=== PATIENT | female | born 1935 | race Caucasian/White ===

== ENCOUNTER 2017-05-09 22:28 | Inpatient (IN) | payer MEDICARE, OTHER ==
[2017-05-09] MEDS ORDERED: Furosemide 40 MG/4 ML VIAL ONE (22:58)
[2017-05-09 23:04] LABS: PTT 29.6 SEC (22.9-36.1)
[2017-05-09 23:08] LABS: INR-International Normal Ratio 1.2; Prothrombin Time 15.5 SEC (12.0-14.7)
[2017-05-09 23:22] LABS: #Basophils 0.1 thou/uL (0.0-0.2); #Eosinphils 0.1 thou/uL (0.0-0.7); #Lymphocytes 1.2 thou/uL (1.20-3.40); %Basophils 0.4 % (0.0-1.0); %Eosinophils 0.6 % (0.0-10.0); %Lymphocytes 8.8 % (21.0-51.0); %Monocytes 7.2 % (0.0-10.0); %Neutrophils 82.8 % (42.0-75.0); Hemoglobin 11.8 g/dL (12.0-16.0); Hypochromia SLIGHT = 6-15 cells (100X) (0-5/hpf); MDiff Complete? YES; Macrocytosis SLIGHT = 6-15 cells (100X) (0-5/hpf); Mean Corpuscular HGB CONC 31.1 g/dL (32.0-36.0); PLT Morphology Comment Appears Adequate; Platelet Count 222 thou/uL (130-400); Polychromasia SLIGHT = 2-3 cells (100X) (0-2/hpf); RBC Distribution Width 12.7 % (11.5-14.5); Red Blood Cell (RBC) Count 3.57 mill/uL (4.20-5.40); White Blood Cell (WBC) Count 13.3 thou/uL (4.8-10.8)
[2017-05-09 23:27] LABS: ALT (SGPT) 64 U/L (8-55); AST (SGOT) 38 U/L (5-34); Albumin 3.9 g/dL (3.4-4.8); Alkaline Phosphatase 68 U/L (40-150); Anion Gap 17 mmol/L (10-20); BUN (Urea Nitrogen) 28 mg/dL (9.8-20.1); Bilirubin, Total 0.6 mg/dL (0.2-1.2); CK (CPK) 129 U/L (29-168); Calc. Creatinine Clearance 0 mL/min (70-130); Carbon Dioxide 20 mmol/L (23-31); Chloride 110 mmol/L (98-107); Estimated GFR-MDRD 44; Globulin 3.2 g/dL (2.4-3.5); Glucose 172 mg/dL (83-110); Potassium 4.1 mmol/L (3.5-5.1); Protein, Total 7.1 g/dL (6.0-8.3); Sodium 143 mmol/L (136-145)
[2017-05-09 23:31] LABS: CKMB 2.9 ng/mL (0-6.6); Troponin I 0.132 ng/mL (< 0.028)
[2017-05-09 23:44] LABS: Actual Bicarbonate (HCO3a) 21.6 mEq/L (22-26); CO2 Tension 38.9 mmHg (35.0-45.0); O2 Tension (PaO2) 202.3 mmHg (80.0-100.0); pH, Arterial 7.38 (7.35-7.45)
[2017-05-09 23:45] LABS: Calcium, Ionized 1.2 mmol/L (1.12-1.30); Hematocrit-ABG 37.4 % (36.0-47.0)
[2017-05-09 23:46] LABS: Analyzer IN Cardio ER
[2017-05-09 23:48] LABS: ALV-art Gradient 103.075 (0-20); Puncture Site RBA
[2017-05-10 05:20] LABS: Troponin I 0.148 ng/mL (< 0.028)
[2017-05-10] MEDS ORDERED: Ondansetron ODT 4 MG TAB SL PRN (07:04)
[2017-05-10] MEDS ORDERED: Ondansetron HCl/PF 4 MG/2 ML Vial IVP PRN ×2 (07:04→08:40)
[2017-05-10] MEDS ORDERED: Acetaminophen 325 MG TAB PO PRN ×2 (07:04→08:40)
--- NOTE | 2017-05-10 07:24 | RAD ---
PORTABLE AP CHEST X-RAY: 05/09/2017 HISTORY: Dyspnea. Decreased oxygen saturation. Respiratory distress. COMPARISON: 04/02/2016. FINDINGS: Post-surgical changes related to median sternotomy are again noted. Cardiac silhouette is magnified by projection but does appear mildly enlarged. There is a right pleural effusion and associated atel ectasis with patchy density at the left lung base which could be related to either atelectasis or pne umonia. Pulmonary vasculature is within normal limits. There is osteopenia. Vascular calcificatio ns seen in the thoracic aorta. No other interval change. IMPRESSION: 1. Pleural and parenchymal changes right lung base probably related to small right pleural effusion a nd atelectasis. 2. Minimal patchy density at the left lung base which may be related to atelectasis versus pneumoniti s. Follow-up to resolution is recommended. POS: WAYNE
[2017-05-10] MEDS ORDERED: Mag-Al 1200 mg/1200 mg/30 ML UDCUP PO PRN (08:40)
[2017-05-10] MEDS ORDERED: Acetaminophen/Codeine 30-300mg Tablet PO PRN (08:42)
[2017-05-10] MEDS ORDERED: Lorazepam 0.5 MG TAB PO PRN (08:42)
[2017-05-10] MEDS ORDERED: Nitroglycerin 2% Ointment 1 INCH/1 GM Packet TOP SCH (09:00)
[2017-05-10] MEDS ORDERED: Carvedilol 3.125 MG TAB PO SCH (09:00)
--- NOTE | 2017-05-10 09:22 | HP ---
PRIMARY CARE PHYSICIAN: Dr. Collins. BUSINESS SERVICES MANAGER: Dr. Stephens. REASON FOR ADMISSION: "I can hardly breathe." HISTORY OF PRESENT ILLNESS: Ms. Aldrich is a very pleasant 82-year-old female that has a history of isc hemic cardiomyopathy. Her last ejection fraction known was approximately 10%; this was back in 2016. Ms. Aldrich presented to the emergency room with complaints of feeling short of breath. She says that she has been having difficulty breathing for the last couple of weeks, but it has gotten much worse over the last week. She says that the shortness of breath typically happens when she tries to get up and go to the bathroom, and it is typically worse in the afternoon. She also noted that it was asso ciated with some pain primarily in the right upper chest, which she says is about 07/02/2016 and it i s constant; it is nonradiating. She does note some nausea and she says she has been vomiting up some phlegm. She says this shortness of breath got progressively worse that she pretty much could not ta ke in anymore, and for this reason, she came to the emergency room under the assistance of her madelineban d. There was found that she appears to be volume overloaded and is being admitted for CHF exacerbati on. The patient does complain of two-pillow orthopnea. She does note some leg swelling off and on. The patient says that she has gotten more or less tired of being aggressively treated. She has disc ussed this with Dr. Stephens and says that now she pretty much only takes nitroglycerin and aspirin. S he also says that she has discussed with him that she does not want any aggressive measures. She wan ts to be DNR and basically would prefer just being treated symptomatically. The patient also complai ns of some neck pain and chronic pain in her left arm, which she says happens almost daily as well as some other aches and pains. REVIEW OF SYSTEMS: Constitutional: She denies any fevers or chills. She has had some night sweats, but no weight loss. HEENT: No headaches, no dizziness, no visual changes, no sore throat, rhinorrh ea, neck pain, no adenopathy. Pulmonary: She does have some cough, which has been productive. No h emoptysis. Cardiovascular: Is as the history of present illness. Gastrointestinal: She has had so me nausea and vomiting, but no change in bowels. Genitourinary: No urinary frequency, hematuria, or hesitancy. Neurologic: No focal weakness, numbness, no seizures. Psychiatric: No symptoms of anx iety or depression. Skin and Integument: No skin changes. No rash. PAST MEDICAL HISTORY: Significant for coronary artery disease as well as ischemic cardiomyopathy, la st ejection fraction was approximately 10%. Also, hypertension, hyperlipidemia, and gastroesophageal reflux disease. PAST SURGICAL HISTORY: She had an aborted bypass surgery. ALLERGIES: No known drug allergies. SOCIAL HISTORY: She is for 64 years. She is a nonsmoker, nondrinker. She does most of her own activities of daily living. Her daughter helps out by bringing food, which is closer to the home . FAMILY HISTORY: There is no known history of coronary artery disease. CURRENT MEDICATIONS: Nitroglycerin and aspirin as needed. PHYSICAL EXAMINATION: GENERAL: She is alert and oriented. She appears to be in no acute distress. VITAL SIGNS: Stable. HEENT: Pupils are equal, round, and reactive. Extraocular muscles are intact. Her sclerae are anic teric. Throat no erythema, no exudates. NECK: No adenopathy, no bruits. LUNGS: She has got some rales at the bases. No wheezing, no rhonchi. CARDIOVASCULAR: She has a normal S1 and S2. She does have an S3. There are no murmurs, clicks, or rubs. ABDOMEN: Soft, it is nontender, nondistended. Positive for bowel sounds. No rebound or guarding. EXTREMITIES: She has got 1+ edema. NEUROLOGICAL: The exam is nonfocal. LABORATORY RESULTS: White blood cell count 13.3, hemoglobin is 11.8, hematocrit is 38, platelet coun t is 212. INR is 1.2. Sodium 143, potassium 4.1, chloride is 110, CO2 is 20, BUN of 28, creatinine 1.18, glucose is 172. She had a chest x-ray, it is mildly enlarged. There is a right pleural effusi on as well as some atelectasis and some patchy atelectasis. On her EKG, it is sinus rhythm. She has an intraventricular conduction block and heart rate is in the low 100s, 103. ASSESSMENT AND PLAN: This is an 82-year-old female that presents to the hospital with what appears t o be in acute on chronic systolic heart failure. She was initially placed on BiPAP or CPAP due to se lizette hypoxemia. She has been given Lasix in the ER and has diuresed some and symptomatically has imp roved. We will go ahead and keep her in the IMCU for now and give her Lasix IV, a low dose LIU inhib itor if tolerated, and a very low dose beta-bernardo. We will consult Cardiology for further recommen dations. The patient has not had a recent echocardiogram. She is agreeable to having a repeat echoc ardiogram done at this time, and we will honor her wishes with regard to DNR status, and we will disc uss treatment modalities, as they come up to see how aggressive she would like to be.
[2017-05-10 11:55] VITALS: BMI 29.7
[2017-05-10] MEDS ORDERED: Furosemide 40 MG/4 ML VIAL SLOW IVP SCH (12:00)
--- NOTE | 2017-05-10 12:28 | CON ---
DATE OF CONSULTATION: 05/10/2017 CONSULTING PHYSICIAN: Dr. Canela. REASON FOR CONSULTATION: Acute respiratory failure related to congestive heart failure exacerbation. HISTORY OF PRESENT ILLNESS: The patient is an 82-year-old female who presented to the emergency room last night with shortness of breath, which has been increasing over the last couple of weeks. Appar ently, she had stopped taking all of her heart medications at home because she was basically giving u p on life. She has improved since being on BiPAP and receiving some diuretic therapy. She is still quite confused on how she should proceed with a chronic symptom management. PAST MEDICAL HISTORY: 1. Ischemic cardiomyopathy with ejection fraction of 10%. 2. Hyperlipidemia. 3. Hypertension. 4. Gastroesophageal reflux. PAST SURGICAL HISTORY: Apparently, she had an aborted coronary artery bypass grafting surgery due to power failure. ALLERGIES: None. SOCIAL HISTORY: She has been for 64 years, does not smoke, does not drink, does not use illi cit drugs. FAMILY MEDICAL HISTORY: Remarkable for coronary artery disease. MEDICATIONS PRIOR TO ADMISSION: She was taking nitroglycerin, aspirin, and acetaminophen, apparently stopped all other medications. REVIEW OF SYSTEMS: Aside from the shortness of breath and congestion, a 12 point review of systems o therwise negative. PHYSICAL EXAMINATION: VITAL SIGNS: Temperature 97.0, pulse 95, respirations 24, O2 saturation 98%, blood pressure 142/83. GENERAL: The patient appears to be in mild respiratory distress on the BiPAP. Neurologically, she i s alert, but somewhat confused. HEENT: Pupils react. Sclerae are anicteric. Oropharynx clear. NECK: Without adenopathy or JVD. LUNGS: She has coarse breath sounds bilaterally with crackles at the bases. CARDIOVASCULAR: S1, S2 tachycardic. No murmur. ABDOMEN: Soft, nontender, nondistended. EXTREMITIES: She has slightly swollen right leg compared to left. She has no skin findings other th an that. She moves all 4 extremities without limitation. LABORATORY DATA: Sodium 143, potassium 4.1, chloride 110, CO2 20, BUN 28, creatinine 1.2, glucose 17 2. BNP 4292, troponin 0.148. INR 1.2, pH 7.38, pCO2 38, pO2 202, on BiPAP. White blood cell count 13, hematocrit 38, platelet count 222. Chest x-ray shows significant bilateral pulmonary congestion and effusion. ASSESSMENT: 1. Acute on chronic systolic congestive heart failure. 2. Acute respiratory failure, requiring mechanical ventilation. 3. Medicine noncompliance. RECOMMENDATIONS: 1. Continue BiPAP as needed. 2. Continue aggressive diuresis. 3. Cardiology consultation. Seventy minutes time was spent performing this consultation. Of this 70 minutes, greater than 50% of the time was spent in counseling and coordination of care.
[2017-05-10] MEDS: Famotidine 20 MG TAB PO SCH ×2 (13:02→20:27)
[2017-05-10] MEDS: Docusate 100 MG CAP PO SCH ×2 (13:02→20:28)
[2017-05-10] MEDS: Nitroglycerin 2% Ointment 1 INCH/1 GM Packet TOP SCH ×2 (13:02→20:28)
[2017-05-10] MEDS: Aspirin 81 mg Enteric Coated Tablet PO SCH (13:02)
[2017-05-10] MEDS: Lisinopril 2.5 MG TAB PO SCH (13:02)
[2017-05-10] MEDS: Furosemide 40 MG/4 ML VIAL SLOW IVP SCH (13:03)
[2017-05-10] MEDS ORDERED: FLU VACC TS2017-18 (>65YR) 0.5 ML SYRINGE IM ONE (13:15)
--- NOTE | 2017-05-10 15:44 | CON ---
DATE OF CONSULTATION: 05/10/2017 CARDIOLOGY CONSULTATION REASON FOR CONSULTATION: Heart failure. PRIMARY RN [facility]: Brody Stephens M.D. HISTORY OF PRESENT ILLNESS: Ms. Aldrich is a very pleasant 82-year-old white female who is very well kn own to myself who comes to the hospital for shortness of breath. She states for the last few days, s he has been noticing increasingly worsening shortness of breath to the point where today she felt lik e she was going to drown. She came in and was placed on BiPAP and started to get IV Lasix for diures is and she is already feeling much better. She is able to sat in the upper 90s only on nasal cannula . She has significant history of ischemic cardiomyopathy. She has an EF of about 10%-15% on last ev aluation. I have seen her several times in the office and she is not too compliant with her medicati ons. She is quite depressed. She has no desire to get better. She refuses any invasive interventio n like AICD or even just stenting of couple arteries. She had a failed attempt at bypass. She curre ntly is not taking many of her medications. She has been encouraged several times in the office to a t least take the Lasix to try to keep the volume down. She has been doing that, but she has been doi ng this for last few weeks. She has 2 level blood pressure to increase any of her heart failure medi cations as well. Recently, she was started on antidepressants as I was concerned about her depressio n and she tells me that it did not feel any different. She felt the same, so she just stopped taking it after about 3 or 4 days. Currently, she is at about 15 degrees right now with increased diuresis . She still wants o be DNR/DNI at the time. PAST MEDICAL HISTORY: 1. Severe multivessel coronary disease. 2. Ischemic cardiomyopathy, EF of 10%-15%. 3. Hypertension. 4. Hyperlipidemia. 5. GERD. PAST SURGICAL HISTORY: Aborted attempted biopsy surgery. She does have sternotomy, but did not get any bypasses at all. ALLERGIES: No known drug allergies. OUTPATIENT MEDICATIONS: Currently, she is only taking aspirin and sublingual nitro when she has ches t pains. FAMILY HISTORY: Noncontributory. SOCIAL HISTORY: Nonsmoker. No alcohol or drugs. MEDICATIONS: 1. Aspirin 81 daily. 2. Fluoxetine 10 mg a day. 3. Gabapentin 100 mg b.i.d. 3 times a day. 4. Isosorbide mononitrate 60 mg at bedtime. 5. Lasix 80 mg daily. 6. Magnesium 200 mg 2 every day. 7. Metoprolol succinate 25 mg a day. 8. Nitroglycerin spray p.r.n. 9. Pantoprazole 40 mg a day. 10. Tylenol p.r.n. pain. She is not taking any of these medications, only nitroglycerin spray and aspirin as needed. REVIEW OF SYSTEMS: A 12-point review of systems was done and is all negative unless stated in the hi story of present illness. PHYSICAL EXAMINATION: VITAL SIGNS: Temperature 97.2, pulse 98, respiratory rate 20, satting 100% on 2 liters, blood pressu re 145/99. GENERAL: Awake, alert, oriented x3, in mild distress. HEENT: Normocephalic, atraumatic. NECK: Supple. LUNGS: Clear. CARDIOVASCULAR: S1, S2, no S3 or S4. No murmurs or rubs. ABDOMEN: Soft, positive bowel sounds. EXTREMITIES: Trace edema. SKIN: Warm and dry. LABORATORY DATA AND IMAGING DATA: Laboratory work was reviewed. White count of 13, hemoglobin 11, h ematocrit 38, and platelet count of 222. Coags were reviewed. ABG was reviewed. Chemistry was revi ewed. BUN of 28, creatinine 1.18. AST and ALT are a little bit high, troponins 0.13, 0.13, and 0.14 . BNP is 4292, albumin 3.9. CK-MB was normal. Chest x-ray showed CHF findings. ASSESSMENT AND PLAN: 1. Acute on chronic systolic heart failure. 2. Severe dilated ischemic cardiomyopathy. 3. Medication noncompliance. 4. Hypertension. 5. Depression. PLAN: 1. Agree with IV diuresis. 2. Continue this until further improvement in her symptoms. 3. We will restart some of her home medications and we will encourage her to continue to take them o n a daily basis. 4. She is not interested in restarting any of her anti-depression medications as she states they jennifer lly make her feel different anyway. 5. Fluid restrict to 1.5 liters a day. 6. She continues to refuse any invasive interventions including AICD or attempted revascularization with PCI. Thank you for letting us to participate in the care of your patient. We will continue to follow.
[2017-05-10] MEDS: Enoxaparin Sodium 30 MG/0.3 ML SYRINGE SC SCH (16:11)
[2017-05-11] MEDS: Ondansetron ODT 4 MG TAB PO PRN ×2 (03:28→13:40)
[2017-05-11 04:14] LABS: #Basophils 0.1 thou/uL (0.0-0.2); #Eosinphils 0.1 thou/uL (0.0-0.7); #Lymphocytes 2.6 thou/uL (1.20-3.40); %Basophils 0.8 % (0.0-1.0); %Eosinophils 0.9 % (0.0-10.0); %Monocytes 8.9 % (0.0-10.0); %Neutrophils 65.5 % (42.0-75.0); Hemoglobin 11.7 g/dL (12.0-16.0); Mean Corpuscular HGB CONC 30.5 g/dL (32.0-36.0); Mean Corpuscular Hemoglobin 31.7 pg (27.0-31.0); Mean Platelet Volume 7.7 fL (7.4-10.4); Platelet Count 201 thou/uL (130-400); RBC Distribution Width 12.3 % (11.5-14.5); White Blood Cell (WBC) Count 10.7 thou/uL (4.8-10.8)
[2017-05-11 04:37] LABS: Anion Gap 15 mmol/L (10-20); BUN (Urea Nitrogen) 26 mg/dL (9.8-20.1); Calc. Creatinine Clearance 39 mL/min (70-130); Calcium 9.2 mg/dL (7.8-10.44); Carbon Dioxide 26 mmol/L (23-31); Chloride 103 mmol/L (98-107); Estimated GFR-MDRD 50; Glucose 103 mg/dL (83-110); Sodium 140 mmol/L (136-145)
[2017-05-11] MEDS: Furosemide 40 MG/4 ML VIAL SLOW IVP SCH ×2 (06:11→13:39)
[2017-05-11] MEDS: Nitroglycerin 2% Ointment 1 INCH/1 GM Packet TOP SCH ×3 (06:12→22:28)
[2017-05-11] MEDS: Lisinopril 2.5 MG TAB PO SCH (09:03)
[2017-05-11] MEDS: Aspirin 81 mg Enteric Coated Tablet PO SCH (09:03)
[2017-05-11] MEDS: Enoxaparin Sodium 30 MG/0.3 ML SYRINGE SC SCH (09:03)
[2017-05-11] MEDS: Famotidine 20 MG TAB PO SCH (09:03)
[2017-05-11] MEDS: Docusate 100 MG CAP PO SCH ×2 (09:03→22:19)
--- NOTE | 2017-05-11 09:33 | PDOC.PN ---
- Subjective Encounter Start Date: 05/11/17 Encounter Start Time: 09:31 Ms. Aldrich was seen today in follow-up. She says she feels a bit better today, and she is breathing better. - Objective Resuscitation Status: Resuscitation Status DNR:Do Not Resuscitate BOBY Reviewed: Yes Vital Signs & Weight: Vital Signs (12 hours) Temp Pulse Resp BP BP Pulse Ox 05/11/17 09:03 86 129/74 05/11/17 08:00 99.0 F 86 18 119/73 100 05/11/17 03:33 97.7 F 94 18 130/82 100 05/11/17 00:00 63 18 121/64 99 Weight Weight 129 lb 1.6 oz I&O: 05/10/17 05/11/17 05/12/17 06:59 06:59 06:59 Intake Total 830 Output Total 1400 Balance -570 Result Diagrams: 05/11/17 03:56 05/11/17 03:56 Phys Exam - Physical Examination HEENT: PERRLA Respiratory: no wheezing, no rales, no rhonchi + occasional coarse breath sounds Cardiovascular: RRR, no significant murmur, no rub Gastrointestinal: soft, non-tender, positive bowel sounds Musculoskeletal: edema present trace pedal edema Dx/Plan (1) Acute combined systolic and diastolic congestive heart failure Code(s): I50.41 - ACUTE COMBINED SYSTOLIC AND DIASTOLIC (CONGESTIVE) HRT FAIL Status: Acute Comment: Ischemic, medical mgmt after recent aborted CABG attempt 03/08/16 due to power failure and non-viable myocardium, Lasix d/c'd, continues to diurese well with >20lb weight loss since admit, continue Dobutamine but wean over next 24-48h (2) Physical deconditioning Code(s): R53.81 - OTHER MALAISE Status: Acute Comment: slow return to ambulatory status, likely will benefit from rehab and home health with PT at a minimum, OOB/ambulate with PT (3) CAD (coronary artery disease) Code(s): I25.10 - ATHSCL HEART DISEASE OF [place] CORONARY ARTERY W/O ANG PCTRS Status: Chronic (4) Dyslipidemia Code(s): E78.5 - HYPERLIPIDEMIA, UNSPECIFIED Status: Chronic (5) HTN (hypertension) Code(s): I10 - ESSENTIAL (PRIMARY) HYPERTENSION Status: Chronic Qualifiers: Comment: Stable, continue to monitor clinically - Plan * Acute on chronic systolic and diastolic heart failure- she is symptomatically improved * Continue Lasix IV, along with low dose Lisinopril and Metoprolol * Ambulate with assistance.
--- NOTE | 2017-05-11 11:20 | PRG ---
DATE OF SERVICE: 05/11/2017 SERVICE: Pulmonary Medicine. INTERVAL HISTORY: The patient is doing great from a respiratory standpoint. She has been weaned down to half liter nasal cannula. Otherwise, there has been no interval change to her condition. She is breathing comfortably. She is able walk with physical therapy today. OBJECTIVE: VITAL SIGNS: Afebrile with T-max of 99.0, pulse 86, blood pressure 129/74, respirations 18, saturation 96% on half liter nasal cannula. HEENT: Normocephalic, atraumatic. Sclerae are white, conjunctivae pink. Oral mucosa is moist without lesions. LUNGS: Excellent air entry. There is no prolonged expiratory phase, wheezing, or rhonchi. Crackles are present dependently. HEART: Normal rate, regular. ABDOMEN: Soft, nontender, nondistended. Bowel sounds are positive. MUSCULOSKELETAL: No cyanosis or clubbing. Trace pitting is present in the bilateral lower extremities. NEUROLOGIC: Grossly nonfocal. LABORATORY DATA: WBC 10.7, hemoglobin 11.7, platelets 201,000. INR 1.2. A pH 7.38, pCO2 38, pO2 202 on BiPAP with 50% FiO2 at that time. Basic metabolic profile is completely unremarkable with a creatinine is down trending to 1.05. BNP has gone up to 6400. Troponin is also trending upward slowly at 0.148. ASSESSMENT: 1. Acute hypoxic respiratory failure. 2. Acute on chronic systolic heart failure. 3. Medical noncompliance. PLAN: We will transition the patient out of the IMCU to the telemetry unit. We will enlist her in the walking program. I will wean her oxygen as tolerated. We will continue to diurese her until she arrives euvolemia, which is fast approaching. Guerrero catheter will be discontinued today. If the patient leaves the IMCU, she will have no further requirements for pulmonary or critical care opinion, and I will sign off. JULIÁND
--- NOTE | 2017-05-11 12:47 | PDOC.CTH ---
Cardiology Progress Note - Subjective She has diuresed well overnight. Her breathing is better. She is only on 1 L NC. She worked with PT today and feels close to her baseline. - Objective Vital Signs Temp Pulse Resp BP BP Pulse Ox 05/11/17 12:00 98.9 F 78 18 113/64 96 05/11/17 09:03 86 129/74 05/11/17 08:00 99.0 F 86 18 119/73 100 05/11/17 03:33 97.7 F 94 18 130/82 100 Weight 129 lb 1.6 oz 05/10/17 05/11/17 05/12/17 06:59 06:59 06:59 Intake Total 830 Output Total 1400 Balance -570 - Physical Examination General/Neuro: alert & oriented x3, NAD Neck: no JVD present Lungs: CTA, unlabored respirations Heart: RRR Abdomen: NT/ND Extremities: + edema B - Telemetry Telemetry Rhythm: NSR - Labs Result Diagrams: 05/11/17 03:56 05/11/17 03:56 Troponin/CKMB CK-MB (CK-2) 2.9 ng/mL (0-6.6) 05/09/17 22:45 Troponin I 0.148 ng/mL (< 0.028) H 05/10/17 04:44 - Assessment/Plan 1. Acute on chronic systolic heart failure 2. Severe ischemic CM. 3. Multivessel CAD. 4. Depression PLAN: - Continue IV diuresis. - Will continue in IMCU overnight and most likely to [address] tomorrow. - Continue other heart meds. BP much better controlled.
[2017-05-12] MEDS: Furosemide 40 MG/4 ML VIAL SLOW IVP SCH ×2 (06:02→14:01)
[2017-05-12] MEDS: Nitroglycerin 2% Ointment 1 INCH/1 GM Packet TOP SCH ×2 (06:02→14:00)
[2017-05-12] MEDS: Lisinopril 2.5 MG TAB PO SCH (08:07)
[2017-05-12] MEDS: Aspirin 81 mg Enteric Coated Tablet PO SCH (08:07)
[2017-05-12] MEDS: Enoxaparin Sodium 30 MG/0.3 ML SYRINGE SC SCH (08:07)
[2017-05-12] MEDS: Docusate 100 MG CAP PO SCH (08:07)
--- NOTE | 2017-05-12 11:17 | PDOC.PN ---
- Subjective Encounter Start Date: 05/12/17 Encounter Start Time: 11:15 Ms. Aldrich was seen in follow-up. She says she feels much better. She is breathing better, and says she walked in the halls without difficulty. - Objective Resuscitation Status: Resuscitation Status DNR:Do Not Resuscitate MAR Reviewed: Yes Vital Signs & Weight: Vital Signs (12 hours) Temp Pulse Resp BP Pulse Ox 05/12/17 08:07 76 05/12/17 08:00 98.0 F 76 18 99 05/12/17 07:50 98.0 F 76 18 140/78 99 05/12/17 04:00 97.5 F L 71 16 128/67 95 05/12/17 00:00 75 16 94 L Weight Weight 124 lb 1.6 oz I&O: 05/11/17 05/12/17 05/13/17 06:59 06:59 06:59 Intake Total 830 1280 Output Total 1400 2850 Balance -570 -1570 Result Diagrams: 05/11/17 03:56 05/11/17 03:56 Phys Exam - Physical Examination HEENT: PERRLA + faint rales at the bases Cardiovascular: RRR, no significant murmur Gastrointestinal: soft, non-tender, positive bowel sounds Musculoskeletal: edema present trace edema, less than yesterday Dx/Plan (1) Acute combined systolic and diastolic congestive heart failure Code(s): I50.41 - ACUTE COMBINED SYSTOLIC AND DIASTOLIC (CONGESTIVE) HRT FAIL Status: Acute Comment: Ischemic, medical mgmt after recent aborted CABG attempt 03/08/16 due to power failure and non-viable myocardium, Lasix d/c'd, continues to diurese well with >20lb weight loss since admit, continue Dobutamine but wean over next 24-48h (2) Physical deconditioning Code(s): R53.81 - OTHER MALAISE Status: Acute Comment: slow return to ambulatory status, likely will benefit from rehab and home health with PT at a minimum, OOB/ambulate with PT (3) CAD (coronary artery disease) Code(s): I25.10 - ATHSCL HEART DISEASE OF [place] CORONARY ARTERY W/O ANG PCTRS Status: Chronic (4) Dyslipidemia Code(s): E78.5 - HYPERLIPIDEMIA, UNSPECIFIED Status: Chronic (5) HTN (hypertension) Code(s): I10 - ESSENTIAL (PRIMARY) HYPERTENSION Status: Chronic Qualifiers: Comment: Stable, continue to monitor clinically - Plan * Acute on chronic systolic and diastolic heart failure- improved. Her weight is down. Will repeat BNP * CAD- stable, she is not complaining of chest pain today * HTN- blood pressure has improved * Hopefully home soon..
--- NOTE | 2017-05-12 12:04 | PQF ---
DATE: 05-12-17 ATTN: DR. MABEL LEWIS Please exercise your independent, professional judgment in responding to the clarification form. Clinical indicators are provided on the bottom of this form for your review Please check appropriate box(s): [ X ] Demand Ischemia [ ] Myocardial Infarction (type) [ ] Other diagnosis [ ] Unable to determine In addition, please specify: Present on Admission (POA): [ X ] Yes [ ] No [ ] Unable to determine For continuity of documentation, please document condition throughout progress notes and discharge summary. Thank You. CLINICAL INDICATORS - SIGNS / SYMPTOMS/ LABS are present in the medical record: Lab Results: TROPONIN: 05-09-17: 0.132 05-10-17: 0.130 05-10-17: 0.148 RISK FACTORS: H&P: HX OF ISCHEMIC CARDIOMYOPATHY, CAD, HYPERLIPIDEMIA, GERD ER DOCUMENTATION: HX OF OPEN HEART SURGERY ( SUPPOSE TO DO A CABG, NEVER DID THE BYPASS D/T TOO MUCH HEART DAMAGE) TREATMENT: SERIES OF ELECTROLYTE LABS CARDIOLOGY CONSULT CONTINUOUS CARDIAC MONITORING (05-10-16) NITROGLYCERIN TOP, ASA PO, LOVENOX (This form is maintained as a part of the permanent medical record) 2014 [employer]. All Rights Reserved ARIELLE [email or web address] Office: [phone] HOSPITALGopi
[2017-05-12 12:31] VITALS: BP 124/57; TEMP 98.3
--- NOTE | 2017-05-12 18:19 | PDOC.CTH ---
Cardiology Progress Note - Subjective She is doing much better. Her breathing is back to baseline. - Objective Vital Signs Temp Pulse Resp BP Pulse Ox 05/12/17 12:00 98.3 F 69 18 124/57 L 95 05/12/17 08:07 76 05/12/17 08:00 98.0 F 76 18 99 05/12/17 07:50 98.0 F 76 18 140/78 99 Weight 124 lb 1.6 oz 05/11/17 05/12/17 05/13/17 06:59 06:59 06:59 Intake Total 830 1280 Output Total 1400 2850 Balance -570 -1570 - Physical Examination General/Neuro: alert & oriented x3, NAD Neck: no JVD present Lungs: unlabored respirations Heart: RRR Abdomen: NT/ND Extremities: other: (no edema.) - Telemetry Telemetry Rhythm: NSR - Labs Result Diagrams: 05/11/17 03:56 05/11/17 03:56 Troponin/CKMB CK-MB (CK-2) 2.9 ng/mL (0-6.6) 05/09/17 22:45 Troponin I 0.148 ng/mL (< 0.028) H 05/10/17 04:44 - Assessment/Plan 1. Acute on chronic systolic heart failure 2. Severe ischemic CM. 3. Multivessel CAD. 4. Depression PLAN: - PO lasix. - Continue other heart meds. BP much better controlled. - Encouraged her to continue to take all her medications as prescribed on this discharge. - Follow up in 2 weeks as scheduled.
--- NOTE | 2017-05-28 13:08 | EKG ---
Test Reason : Blood Pressure : / mmHG Vent. Rate : 112 BPM Atrial Rate : 112 BPM P-R Int : 158 ms QRS Dur : 138 ms QT Int : 338 ms P-R-T Axes : 052 056 -86 degrees QTc Int : 461 ms Sinus tachycardia with Fusion complexes Possible Left atrial enlargement Non-specific intra-ventricular conduction block Cannot rule out Anterior infarct , age undetermined T wave abnormality, consider inferolateral ischemia Abnormal ECG Confirmed by BELKIS BOYCE, YOLANDA ([id number]), legal editor CASSIUS KATE ([id number]) on 05/28/2017 1:07:29 PM Referred By: Confirmed By:YOLANDA TAMAYO MD
== END 2017-05-12 16:34 | disposition home or self-care (01) | DRG 291 ==
LOC: ERS 22:28 → IMCU/EMU 05-10 01:08
PROVIDERS: ADMIT Family Medicine; ATTEND Family Medicine
DX: I11.0 Hypertensive heart disease with heart failure (principal); J96.01 Acute respiratory failure with hypoxia; I50.23 Acute on chronic systolic (congestive) heart failure; I25.5 Ischemic cardiomyopathy; I25.10 Atherosclerotic heart disease of native coronary artery without angina pectoris; E78.5 Hyperlipidemia, unspecified; K21.9 Gastro-esophageal reflux disease without esophagitis; Z66 Do not resuscitate; Z79.82 Long term (current) use of aspirin; Z91.14 Patient's other noncompliance with medication regimen; F32.9 Major depressive disorder, single episode, unspecified
CPT/HCPCS: 36415; 71045; 80048; 80053; 82553; 82805; 83880; 84484; 85025; 85610; 85730; 90471; 90682; 93005; 93798; 94660; 96374; G0008; J1940; Q2036

== ENCOUNTER 2017-12-28 17:16 | Inpatient (IN) | payer MEDICARE, OTHER ==
[2017-12-28 18:35] LABS: #Basophils 0.1 thou/uL (0.0-0.2); #Eosinphils 0.1 thou/uL (0.0-0.7); #Lymphocytes 1.7 thou/uL (1.20-3.40); #Monocytes 0.9 thou/uL (0.11-0.59); #Neutrophils 10.9 thou/uL (1.40-6.50); %Basophils 0.6 % (0.0-1.0); %Eosinophils 0.9 % (0.0-10.0); %Lymphocytes 12.3 % (21.0-51.0); %Monocytes 6.7 % (0.0-10.0); %Neutrophils 79.5 % (42.0-75.0); Hemoglobin 11.5 g/dL (12.0-16.0); Mean Corpuscular HGB CONC 33.6 g/dL (32.0-36.0); Mean Corpuscular Hemoglobin 33.6 pg (27.0-31.0); Mean Corpuscular Volume 99.9 fL (78.0-98.0); Mean Platelet Volume 8.3 fL (7.4-10.4); Platelet Count 194 thou/uL (130-400); RBC Distribution Width 10.6 % (11.5-14.5); Red Blood Cell (RBC) Count 3.41 mill/uL (4.20-5.40); White Blood Cell (WBC) Count 13.7 thou/uL (4.8-10.8)
[2017-12-28 18:42] LABS: Prothrombin Time 13.5 SEC (12.0-14.7)
--- NOTE | 2017-12-28 18:57 | RAD ---
TWO VIEWS LEFT FEMUR: 12/28/17 HISTORY: Left hip pain post fall. FINDINGS: There is a comminuted intertrochanteric left hip fracture with mild varus angulation of fracture frag ments. Lesser trochanter fracture fragment is slightly displaced medially. Fracture fragments are mil dly . Fracture involves the greater trochanter left hip. There is no evidence of a hip dislo cation. Prominent osteoarthritis involves the left hip. Degenerative changes are seen in the visualized lower lumbar spine. IMPRESSION: 1. Intertrochanteric left hip fracture with mild displacement and varus angulation of fracture f ragments. 2. Prominent osteoarthritis left knee. POS: [facility]
[2017-12-28 19:03] LABS: ALT (SGPT) 14 U/L (8-55); AST (SGOT) 22 U/L (5-34); Albumin 4.2 g/dL (3.4-4.8); Alkaline Phosphatase 58 U/L (40-150); Anion Gap 17 mmol/L (10-20); BUN (Urea Nitrogen) 35 mg/dL (9.8-20.1); Bilirubin, Total 0.3 mg/dL (0.2-1.2); Calc. Creatinine Clearance 0 mL/min (70-130); Calcium 9.3 mg/dL (7.8-10.44); Carbon Dioxide 23 mmol/L (23-31); Chloride 101 mmol/L (98-107); Estimated GFR-MDRD 33; Globulin 3.6 g/dL (2.4-3.5); Glucose 155 mg/dL (83-110); Potassium 3.8 mmol/L (3.5-5.1); Protein, Total 7.8 g/dL (6.0-8.3); Sodium 137 mmol/L (136-145)
--- NOTE | 2017-12-28 19:41 | RAD ---
PORTABLE AP CHEST X-RAY 12/28/17 HISTORY: Injury after a fall. COMPARISON: 05/09/17. FINDINGS: Bibasilar pleural and parenchymal lung changes have resolved. Lungs are clear on today's exam with mi ld chronic lung changes present. The cardiac silhouette and pulmonary vasculature are within normal l imits. Postsurgical changes related to median sternotomy are again seen. Surgical clips overlie the r ight upper quadrant. Osteopenia is present. No other interval change. IMPRESSION: 1. No acute cardiopulmonary process. 2. Mild chronic lung changes. POS: [facility]
--- NOTE | 2017-12-28 19:43 | RAD ---
THREE VIEWS LEFT HAND: 12/28/17 HISTORY: Patient fell while holding a light bulb. Laceration to hand. FINDINGS: There is osteopenia . Calcifications seen in the region of the triangular fibrocartilage. Mild scatte red osteoarthritis is present involving the interphalangeal joints as well as the first carpometacarp al joint. No fracture or dislocation is seen. No radiopaque foreign body is present. No other finding s. IMPRESSION: Osteopenia and osteoarthritis without evidence of an acute osseous abnormality left hand. POS: [facility]
[2017-12-28] MEDS ORDERED: Adacel (T-DAP) 0.5 ML VIAL ONE (20:11)
--- NOTE | 2017-12-28 20:36 | RAD ---
AP PELVIS: 12/28/17 HISTORY: Left hip pain post fall. FINDINGS: As noted on views of the left femur, also obtained on this date, there is a mildly comminuted intertr ochanteric left hip fracture with mild varus angulation of fracture fragments. Lesser trochanter frac ture fragment is slightly displaced medially. Fracture extends into the greater trochanter. There is sclerosis involving the weightbearing surface of the left femoral head likely related to osteonecrosi s with slight subchondral collapse. The superior pubic ramus is obscured due to overlying bowel gas, but no obvious displaced fracture is seen on this exam. No additional fracture is seen. Degenerative changes are seen in the lower lumbar spine. Degenerative changes are also present at the pubic symphy sis. IMPRESSION: 1. Mildly comminuted intertrochanteric left hip fracture with varus angulation of fracture fragm ents. 2. Osteonecrosis left femoral head. 3. Osteopenia. 4. Limited evaluation of the superior and inferior pubic rami due to patient rotation and overly ing bowel limiting evaluation of the superior pubic rami. No obvious displaced fracture is appreciat ed on this exam. POS: [facility]
[2017-12-28] MEDS ORDERED: Fentanyl 100 MCG/2 ML VIAL ONE (20:54)
[2017-12-28] MEDS ORDERED: Acetaminophen 1,000 MG in Premix Bag 1 BAG IVPB SCH ×2 (22:22→23:59)
[2017-12-28] MEDS ORDERED: hydrALAZINE 20 MG/ML VIAL SLOW IVP PRN (22:22)
[2017-12-28] MEDS ORDERED: Ondansetron ODT 4 MG TAB PO PRN (22:22)
[2017-12-28] MEDS ORDERED: Ondansetron HCl/PF 4 MG/2 ML Vial IVP PRN (22:22)
[2017-12-28] MEDS ORDERED: Dextrose 50% Abboject 50 ML SYRINGE SLOW IVP PRN (22:22)
[2017-12-28] MEDS ORDERED: Dextrose 5% in Water 1,000 ML IV PRN (22:22)
--- NOTE | 2017-12-28 22:31 | HP ---
REQUESTING PHYSICIAN: Dr. Duran. ATTENDING SURGEON: Dr. Rojas. CONSULTATION: Orthopedics, Dr. lCark. HISTORY OF PRESENT ILLNESS: The patient is an 82-year-old woman, who missed a step at her home and fell, landing on her left hip. She had immediate pain to that area. She incidentally was carrying a light bulb that broken her hand, also that cause some small puncture wounds. Otherwise, the patient denied any syncopal episodes or chest pain, loss of consciousness or hitting her head. She was brought to the emergency department by ground EMS, underwent evaluation and examination and was noted to have a left intertrochanteric hip fracture. At which time, we were asked to admit the patient and obtain orthopedic consultation. ALLERGIES: None. CURRENT MEDICATIONS: Metoprolol, isosorbide, aspirin, furosemide. PAST MEDICAL HISTORY: Gastroesophageal reflux disease; hyperlipidemia; osteoarthritis; hypertension; congestive heart failure, reported EF in 2016 was 5% to 15%; and anxiety. PAST SURGICAL HISTORY: Hysterectomy, appendectomy, cholecystectomy. The patient had open heart surgery that the CABG was not completed due to the severe amount of heart damage. SOCIAL HISTORY: The patient lives at home with her spouse. She ambulates with a walker normally. The patient denies drug, tobacco or alcohol use. REVIEW OF SYSTEMS: A 10-point review of systems is negative, unless otherwise stated. PHYSICAL EXAMINATION: VITAL SIGNS: Blood pressure 131/72, heart rate 68, respirations 16, oxygen saturation 97% on room air, temperature is 97.9. GENERAL: The patient is resting comfortably in the ER bed. She is awake, alert , and oriented x3. Nicolás coma scale is 15. She has excellent recall of the fall and her chief complaint is left hip pain. HEENT: Head is normocephalic, atraumatic. Eyes: Extraocular motion intact. PERRLA bilaterally. Ears are atraumatic without discharge. Nose is atraumatic without discharge. Oropharynx is clear. NECK: Nontender. Trachea is midline. No JVD. CHEST: Clear to auscultation with good inspiratory and expiratory effort. HEART: Regular rate and rhythm with distant murmur. ABDOMEN: Soft, flat, nontender with hypoactive bowel sounds. Pelvis is stable with tenderness to palpation to the left hip consistent with her fracture. EXTREMITIES: Neurovascularly intact x4. Capillary refill is less than 3 seconds. BACK: By report is atraumatic and nontender. LABORATORY FINDINGS: White blood cell count 13.7, hemoglobin 11.5, hematocrit 34.1, platelets 194. Sodium 137, potassium 3.8, chloride 101, CO2 of 23, BUN 35 , creatinine 1.50, glucose 155. LFTs are unremarkable. PT 13.5, INR 1.0. RADIOGRAPHS: AP chest shows no acute cardiopulmonary process. Three views of the left hand show no acute osseous abnormality. Two views of the left femur show an intertrochanteric left hip fracture with mild displacement and varus angulation of the fracture fragments. AP pelvis shows the same intertrochanteric left hip fracture. ASSESSMENT AND PLAN: 1. Status post fall. 2. Left intertrochanteric hip fracture. 3. Acute pain secondary to trauma. 4. History of severe systolic dysfunction with an ejection fraction of 5% to 15 %. 5. History of hypertension. 6. History of anxiety. 7. History of gastroesophageal reflux disease. Plan will be to admit the patient to the surgical floor for pain management, pulmonary toilet, gastritis, and mechanical venous thromboembolism prophylaxis. The patient will be made n.p.o. after midnight though will certainly require clearance before undergoing surgery with her significant heart failure. The case was discussed with Dr. Clark and he concurred with this plan. The evaluation, examination, laboratory and radiographic findings will be discussed with Dr. Rojas after this dictation. [facility]
[2017-12-28] MEDS: Cyclobenzaprine 10 MG TAB PO PRN (22:41)
[2017-12-28] MEDS ORDERED: Famotidine 20 MG TAB PO SCH (22:45)
[2017-12-29] MEDS: Sodium Chloride 0.9% 1,000 ML IV SCH ×3 (00:30→23:02)
[2017-12-29] MEDS: traMADol HCl 50 MG TAB PO PRN (02:36)
[2017-12-29 05:36] LABS: #Lymphocytes 1.9 thou/uL (1.20-3.40); #Monocytes 1.3 thou/uL (0.11-0.59); #Neutrophils 9.4 thou/uL (1.40-6.50); %Basophils 0.3 % (0.0-1.0); %Eosinophils 0.3 % (0.0-10.0); %Lymphocytes 14.8 % (21.0-51.0); %Monocytes 10.3 % (0.0-10.0); %Neutrophils 74.4 % (42.0-75.0); Hemoglobin 11.1 g/dL (12.0-16.0); Mean Corpuscular HGB CONC 33.1 g/dL (32.0-36.0); Mean Corpuscular Hemoglobin 33.3 pg (27.0-31.0); Mean Platelet Volume 8.1 fL (7.4-10.4); Platelet Count 191 thou/uL (130-400); RBC Distribution Width 10.5 % (11.5-14.5); Red Blood Cell (RBC) Count 3.33 mill/uL (4.20-5.40); White Blood Cell (WBC) Count 12.7 thou/uL (4.8-10.8)
[2017-12-29 05:43] LABS: Anion Gap 16 mmol/L (10-20); BUN (Urea Nitrogen) 27 mg/dL (9.8-20.1); Calc. Creatinine Clearance 36 mL/min (70-130); Calcium 9.3 mg/dL (7.8-10.44); Carbon Dioxide 21 mmol/L (23-31); Chloride 106 mmol/L (98-107); Estimated GFR-MDRD 46; Glucose 111 mg/dL (83-110); Potassium 4.4 mmol/L (3.5-5.1); Sodium 139 mmol/L (136-145)
[2017-12-29] MEDS ORDERED: Acetaminophen 1,000 MG in Premix Bag 1 BAG IVPB SCH (06:00)
--- NOTE | 2017-12-29 08:32 | CON ---
DATE OF CONSULTATION: 12/29/2017 HISTORY OF PRESENT ILLNESS: We were asked to see the patient by Trauma. The patient was in her norm al state of health yesterday when she went outside, missed a step and fell landing on her left hip. She was unable to move and had significant pain. She denies any passing out. She remembers the inci dent did not hit her head. She has no numbness and tingling in her lower extremities, but any moveme nt of that left hip causes her a good deal of pain. MEDICATIONS: Metoprolol, isosorbide, aspirin, furosemide. ALLERGIES: None. PAST MEDICAL HISTORY: GERD, hyperlipidemia, arthritis, hypertension, CHF, anxiety. She has a bad he art in last reports in 2005, EF was 10%. PAST SURGICAL HISTORY: Hysterectomy, appendectomy, cholecystectomy. She had a sternotomy, but unfor tunately the power went out and the procedure was not able to be completed and she will not undergo t his procedure again per patient. SOCIAL HISTORY: Lives at home with her who also has a bad heart. She is a daily walker. No alcohol or nicotine products. REVIEW OF SYSTEMS: Positive for left hip pain. Denies any shortness of breath, chest pain, no neuro pathies other than her heart. She is a pretty healthy female. Rest of review of systems is negative . PHYSICAL EXAMINATION: GENERAL: Well-nourished, well-developed female, awake, alert, and in moderate distress. Speech tiff r. Affect pleasant. Answers questions appropriately. Alert and oriented x3. HEENT: Normal exam. Face symmetric, tongue midline. NECK: Supple, trachea midline. EXTREMITIES: Upper extremities, equal size, shape, symmetry, normal bulk and tone. Lower extremitie s, right lower extremity is without positive findings. Left lower extremity is a little bit shorter and outward rotated. Some palpable tenderness over the left hip, groin area. Moving all lower extre mity causes her a good deal of pain. Sensation of lower extremities as her pulses are intact and equ al. ASSESSMENT: 1. Multiple health issues. 2. Left hip fracture. PLAN: I spoke with the patient extensively about options. She would like to continue walking. Ther efore, she will undergo a TFN nailing. I have explained the procedure with her and she is amenable t o go forth with the procedure. We also extensively discussed risks and benefits of surgery and she u nderstands at a higher risk for surgical procedures. I will talk with Anesthesia today, maybe we can do a single-shot epidural on her instead of putting her under but will talk to anesthesia and she al so is getting Cardiology to see her today. Family will be here a little bit later today. We will ta lk to them before surgical intervention, but again she is amenable to go forth with surgery. This is Thomas Martinez PA-C dictating for Chaka Clark M.D.
[2017-12-29] MEDS ORDERED: Prevnar 13-Val Conj/PF 0.5 ML SYRINGE IM ONE (09:00)
[2017-12-29] MEDS: Furosemide 40 MG TAB PO SCH (09:58)
[2017-12-29] MEDS: Famotidine 20 MG TAB PO SCH (09:58)
--- NOTE | 2017-12-29 10:52 | PRG ---
DATE OF SERVICE: 12/29/2017 SUBJECTIVE: Ms. Aldrich is an 82-year-old woman with a history of severe coronary arterial di sease with inoperable coronary arterial disease. The patient suffered a left hip fracture yesterday following a fall. Currently, she reports adequate pain control. She denies any dyspnea, syncope or chest pain. PHYSICAL EXAMINATION: VITAL SIGNS: Currently includes blood pressure 137/87, pulse 92, respiratory rate is 18, temperature 98 degrees Fahrenheit. Oxygen saturation 96% on room air. HEART: Reveals regular rate and rhythm. CHEST: Lungs clear to auscultation bilaterally. ABDOMEN: Soft, nontender, nondistended. EXTREMITIES: Reveals 2+ radial and pedal pulses bilaterally. NEUROLOGIC: Reveals no focal deficits present. LABORATORY DATA: This morning includes a CBC with 12,700 white blood cells, hemoglobin and hematocri t 11.1 and 33.6 respectively. Platelet count is 191,000. Metabolic profile: Sodium 139, potassium 4.4, chloride is 106, bicarbonate is 21, BUN 27, creatinine is 1.14, glucose is 111. IMPRESSION: 1. Post-injury day #1, status post ground level fall. 2. Left hip fracture. 3. Severe coronary artery disease. CAMI: Transthoracic echocardiography to be performed this morning to evaluate cardiac chamber size, w all motion and function. The patient is to be evaluated by Cardiology in anticipation of surgical re pair of the left hip fracture. The patient reports that she ambulates quite well at home. Daily act ivities consist of working in her yard. In fact, she denies having any shortness of breath or syncop e with exertion. Her daily activities are only limited by an arthritic left knee. I anticipate that she goes to surgery today with acceptable severe preoperative risks for myocardial infarction or difficulty with ventilatory liberation. The above findings and plan has been discussed with the patient who indicates understanding of inform ation given. I have answered her questions.
[2017-12-29] MEDS ORDERED: CEFAZOLIN/Water 2 GM/20 ML SYRINGE SLOW IVP SCH (11:00)
[2017-12-29] MEDS: Acetaminophen 500 MG TAB PO SCH ×2 (11:39→17:59)
--- NOTE | 2017-12-29 12:47 | CON ---
DATE OF CONSULTATION: 12/29/2017 REASON FOR CONSULTATION: Preoperative evaluation. HISTORY OF PRESENT ILLNESS: Mrs. Aldrich is a very pleasant 82-year-old white female who comes to the [facility] after a fall. She was helping her change a light bulb and she was holding light bulb in her hand something happened that she fell backwards and broke her hip and injured her left hand. She has a history of coronary artery disease and severe ischemic cardiomyopathy. Her last EF was in the 15%-20% range. She had a heart catheterization back in 2015, when she was first diagnosed with her heart issues and she was found to have a subtotal LAD and she was sent to the OR for bypass; deutsch dusty, this was aborted as the lights went out during the procedure. She never received revascularizat ion; however, apparently her anterior wall seemed aldrich and not viable when she had the heart open. S he is followed up with me ever since. She is not taking any of her medications for heart failure. S he only takes the Lasix to get fluid out. She has been in the hospital at least one more time since then with heart failure, but that is about it. She currently denies any chest pain, tightness or pre ssure. Her shortness of breath is at her normal baseline. PAST MEDICAL HISTORY: 1. Severe LAD disease. 2. Ischemic cardiomyopathy. 3. Hypertension. 4. Hyperlipidemia. 5. GERD. PAST SURGICAL HISTORY: Sternotomy with aborted single vessel bypass. OUTPATIENT MEDICATIONS: Taking only aspirin and sublingual nitro and p.r.n. Lasix. ALLERGIES: No known drug allergies. FAMILY HISTORY: Noncontributory. SOCIAL HISTORY: No alcohol, tobacco or drugs. REVIEW OF SYSTEMS: A 12-point review of systems was done and is all negative unless stated in the hi story of present illness. PHYSICAL EXAMINATION: VITAL SIGNS: Temperature 98.3, pulse 92, respiratory rate 18, satting 96% on room air, blood pressur e 137/87. GENERAL: Awake, alert, oriented x3, in no distress. HEENT: Normocephalic, atraumatic. NECK: Supple. LUNGS: Clear. CARDIOVASCULAR: S1, S2, no S3, S4, no murmurs. ABDOMEN: Soft, positive bowel sounds. EXTREMITIES: No edema. SKIN: Warm and dry. LABORATORY WORK: Reviewed. CBC with mildly reduced hemoglobin 11.1, white count of 12, platelet cou nt was normal. Coags were unremarkable. Chemistry was unremarkable except for creatinine 1.5, claudia r 1.14 today. Albumin is 4.6. EKG was reviewed. Echocardiogram was reviewed. Her anterior wall is severely hypokinetic and her apex is dyskinetic, b ut she has an EF of 30%-35% with adequate wall motion on the inferior and inferolateral reyes. ASSESSMENT AND PLAN: 1. Preoperative evaluation: Certainly, she is a high risk for an intermediate risk procedure. She is not having an acute coronary syndrome and she is not in acute heart failure at this time, so she w ould not be prohibitive for surgery at this moment. She may proceed with the understood risk caveats . No interventions can be done to decrease the risk. If spinal anesthesia can be performed safely, then this should be considered; however, if general required, that should be reasonable as well. 2. Ischemic cardiomyopathy, EF now at 30%-35%. She has never wanted an AICD. She does not want any invasive interventions. 3. She is not interested in taking any of the medicines for heart failure. Thank you for letting us participate in the care of your patient. We will follow.
[2017-12-29] MEDS ORDERED: Ondansetron HCl/PF 4 MG/2 ML Vial ONE (14:32)
[2017-12-29] MEDS ORDERED: PHENYLEPHRINE-NS 100 MCG/ML 10 ML SYRINGE ONE (14:32)
[2017-12-29] MEDS ORDERED: PROPOFOL 200 MG/20 ML VIAL ONE (14:32)
[2017-12-29] MEDS ORDERED: Dexamethasone 20 MG/5 ML VIAL ONE (14:32)
[2017-12-29] MEDS ORDERED: Glycopyrrolate 0.2 MG/ML 5 ML SYRINGE ONE (14:32)
[2017-12-29] MEDS ORDERED: CEFAZOLIN/Water 2 GM/20 ML SYRINGE ONE (14:38)
[2017-12-29] MEDS ORDERED: Ondansetron HCl/PF 4 MG/2 ML Vial IVP PRN (17:49)
[2017-12-29] MEDS ORDERED: Promethazine HCl 25 MG/ML VIAL IM PRN (17:49)
[2017-12-29] MEDS ORDERED: Promethazine HCl 25 MG/ML VIAL SLOW IVP PRN (17:49)
[2017-12-29] MEDS ORDERED: Fentanyl 100 MCG/2 ML VIAL ONE ×3 (17:50→18:27)
--- NOTE | 2017-12-29 18:33 | RAD ---
INTRAOPERATIVE FLUOROSCOPIC IMAGES LEFT HIP/LEFT FEMUR 12/29/17 HISTORY: ORIF left hip. FLUOROSCOPY: Total fluoroscopy time is 109.5 seconds with total dose of 12.71 mGy. FINDINGS/IMPRESSION: Provided images demonstrate an antegrade intramedullary nadia which extends the length of the femur wit h a distal interlocking screw and dynamic compression screw transfixing the intertrochanteric left hi p fracture. There is improvement in alignment of fracture fragments compared to study on 12/28/17. Incr eased density focus at the superior aspect of the femoral head is again seen and likely related to os teonecrosis. Correlation with intraoperative findings is recommended. POS: [facility]
[2017-12-29] MEDS: Aspirin 81 mg Enteric Coated Tablet PO SCH (21:52)
[2017-12-29] MEDS: CEFAZOLIN/Water 2 G/20 ML 2 GM in Syringe 0 ML SLOW IVP SCH (21:53)
[2017-12-30] MEDS: traMADol HCl 50 MG TAB PO PRN ×2 (02:06→23:35)
[2017-12-30] MEDS: Acetaminophen 500 MG TAB PO SCH ×4 (02:07→20:03)
[2017-12-30] MEDS ORDERED: Cepastat Lozenges 1 LOZ PO PRN (03:14)
[2017-12-30] MEDS: CEFAZOLIN/Water 2 G/20 ML 2 GM in Syringe 0 ML SLOW IVP SCH (05:53)
[2017-12-30] MEDS ORDERED: ISOVUE-370 76%-LOCM 1 ML ONE (07:22)
[2017-12-30] MEDS: Aspirin 81 mg Enteric Coated Tablet PO SCH ×2 (08:36→20:35)
[2017-12-30] MEDS: Famotidine 20 MG TAB PO SCH (08:39)
[2017-12-30] MEDS: Nitroglycerin 0.4 MG TAB (25 Tab Bottle) SL PRN ×2 (08:49→11:15)
[2017-12-30] MEDS: Sodium Chloride 0.9% 1,000 ML IV SCH ×2 (08:55→20:38)
[2017-12-30] MEDS: Furosemide 40 MG TAB PO SCH (08:55)
[2017-12-30 09:36] LABS: #Monocytes 0.6 thou/uL (0.11-0.59); #Neutrophils 11.7 thou/uL (1.40-6.50); %Basophils 0.1 % (0.0-1.0); %Eosinophils 0.1 % (0.0-10.0); %Lymphocytes 7.3 % (21.0-51.0); %Monocytes 4.5 % (0.0-10.0); Hemoglobin 8.1 g/dL (12.0-16.0); Mean Corpuscular HGB CONC 33.7 g/dL (32.0-36.0); Mean Corpuscular Hemoglobin 34.2 pg (27.0-31.0); Mean Platelet Volume 8.3 fL (7.4-10.4); Platelet Count 159 thou/uL (130-400); RBC Distribution Width 10.5 % (11.5-14.5); Red Blood Cell (RBC) Count 2.36 mill/uL (4.20-5.40); White Blood Cell (WBC) Count 13.2 thou/uL (4.8-10.8)
[2017-12-30 09:48] LABS: Anion Gap 13 mmol/L (10-20); BUN (Urea Nitrogen) 20 mg/dL (9.8-20.1); Calc. Creatinine Clearance 42 mL/min (70-130); Calcium 8.5 mg/dL (7.8-10.44); Carbon Dioxide 22 mmol/L (23-31); Chloride 108 mmol/L (98-107); Estimated GFR-MDRD 54; Glucose 157 mg/dL (83-110); Magnesium 1.8 mg/dL (1.6-2.6); Phosphorus 2.4 mg/dL (2.3-4.7); Potassium 4.6 mmol/L (3.5-5.1); Sodium 138 mmol/L (136-145)
[2017-12-30 09:55] LABS: CKMB 6.3 ng/mL (0-6.6); Troponin I 0.274 ng/mL (< 0.028)
[2017-12-30] MEDS ORDERED: Magnesium Sulfate 4 GM in Sodium Chloride 0.9% 250 ML 250 ML IVPB SCH (10:00)
--- NOTE | 2017-12-30 10:17 | OP ---
DATE OF SURGERY: 12/29/2017 PREOPERATIVE DIAGNOSES: Left subtrochanteric/intertrochanteric femur fracture. POSTOPERATIVE DIAGNOSES: Left subtrochanteric/intertrochanteric femur fracture. SURGICAL PROCEDURE: Left femur TFN long nail. ANESTHESIA: General. SURGEON: Chaka Clark M.D. MARKETING COMMUNICATIONS ASSISTANT: Thomas Martinez PA-C. IMPLANTS: The [employer] TFN system was used with a 14 x 360 mm nail with a 95 mm hip screw and a singl e 5 mm cross-locking screw. BLOOD LOSS: 100 mL. COMPLICATIONS: None. DRAINS: None. SPECIMEN: None. OUTCOME: Satisfactory. INDICATIONS: The patient is an 82-year-old lady status post ground level fall sustaining a left subt rochanteric/intertrochanteric femur fracture. After discussion with patient and her and melyssa marquez, we have decided to proceed with stabilization. The patient does have an extensive history of h eart disease. We have discussed risks and benefits. At this time, we are going to proceed with surg deangelo. Informed consent has been obtained. I believe all questions have been answered. DESCRIPTION OF PROCEDURE: The patient was brought to the operating room and a timeout performed foll owed by induction of general anesthesia. Next, patient was positioned supine on the fracture table w ith her leg scissored to allow for imaging of the left leg which was held in longitudinal traction. Next, a sterile prep and drape was performed in the left lateral thigh. A small incision was made pr oximal to the greater trochanter. After skin was sharply incised, dissection was carried down bluntl y such that the tip of the greater trochanter could be palpated. A threaded guidewire was passed fro m the tip of this trochanter into the proximal femoral shaft. Next, a reamer was passed over this gu idewire. Next, a ball-tipped guidewire was passed down the shaft of the femur into the distal femora l metaphysis measuring off of this ball-tipped guidewire was determined that a 360 mm nail would be o f appropriate length. Next, reaming was started at size 13 and continued up to size 15. Next, a 14 x 360 mm TFN nail was passed over the ball-tipped guidewire and down into the distal femur. Once dri antonio to an appropriate depth, the hip screw device was inserted into the jig and passed to the lateral cortex of the femur through a second more distal skin incision. At this point, a third incision was made anteriorly and a spike of bone still attached to the femoral neck piece which was protruding an teriorly was reduced using a small osteotome. Once reduced, the threaded guidewire was passed throug h the lateral cortex of the femur up the femoral neck into the femoral head. Measurement off of this guidewire determined that 95 mm hip screw would be of appropriate length and as such, this device wa s then inserted. The locking mechanism was engaged then backed off a half turn to allow for sliding of the hip screw. Next, the jig was removed from the proximal nail and a single distal cross lock sc rew was inserted with freehand technique. Final AP, lateral C-arm images were taken of both knee and hip. The wounds were then irrigated with bulb syringe. The most proximal incision closed in layers with 0 Vicryl for the fascia, 2-0 Vicryl subcutaneously, and adiel for the skin. The two smaller stab wounds were closed with adiel for the skin. A Xeroform gauze tape dressing was applied to the thigh and then patient was transferred to recovery room in stable condition. There were no complica tions and patient tolerated the procedure well.
--- NOTE | 2017-12-30 10:20 | PRG ---
DATE OF SERVICE: 12/30/2017 HISTORY OF PRESENT ILLNESS: Ms. Aldrich is an 82-year-old woman with a history of severe tera nary artery disease. The patient is postoperative day #1 status post TFN of the left hip fracture. She is awake and alert this morning, complaining of 8/10, substernal chest pain. She denies any dysp courtney. She has received some morphine sulfate without relief to the pain. PHYSICAL EXAMINATION: GENERAL: She moves all extremities and answers questions appropriately. VITAL SIGNS: This morning includes blood pressure 93/59, pulse is 67, respiratory rate is 18, temper ature is 98.3 degrees Fahrenheit. Oxygen saturation was 91% on room air. HEENT: Reveals normocephalic and atraumatic. Pupils are equal, round, and reactive to light and acc ommodation. CARDIOVASCULAR: Reveals regular rate and rhythm. She has no murmurs or gallops auscultated. LUNGS: Clear to auscultation bilaterally. Her breathing is regular and unlabored. ABDOMEN: Soft, nontender, nondistended. Bowel sounds in all 4 quadrants appear normoactive. A transthoracic echocardiography yesterday revealed ejection fraction of 30-35% with apical hypokines is. A 12-lead EKG obtained today reveals ST changes in the anterior leads, although I did not see the old EKG to compare. LABORATORY FINDINGS: Today includes a CBC with 13,200 white blood cells, hemoglobin and hematocrit 8 .1 and 24.0 respectively. This is in contrast to 11.1 and 33.6 preoperatively. Platelet count is st able at 159,000. Metabolic profile: Sodium 138, potassium is 4.6, chloride is 108, bicarbonate is 22, BUN 20, creatin ine 0.99, glucose 157. Troponin I is elevated at 0.274. IMPRESSION: 1. Postop day #1, status post TFN left hip fracture. 2. Acute coronary syndrome. PLAN: 1. The patient has been evaluated by Cardiology at this time. We have provided sublingual nitroglyc scarlett. 2. The patient will be transferred to Intermediate Care Unit for continuous cardiac monitoring. 3. Heparin infusion will be initiated. The above findings and plan discussed with the patient who indicates understanding of the information given. She will be transfused with 1 unit of packed red blood cells to treat the acute blood loss a nemia in this patient who is currently symptomatic.
--- NOTE | 2017-12-30 11:41 | CT ---
CT ANGIOGRAM CHEST WITH CONTRAST: Date: 12/30/17 HISTORY: Chest pain. COMPARISON: Chest radiograph dated 12/28/17. FINDINGS: CT angiogram of the chest performed after the intravenous administration of contrast. 3D rendering pr ovided. No proximal segmental pulmonary arterial filling defect. Pulmonary trunk size is normal. The right an d left pulmonary arteries are mildly dilated. Abnormal circumferential thickening in the esophagus containing fluid. There is some scarring in the lung bases. No significant pulmonary edema. Prior CABG. Old right lateral 4th rib fracture. Old right lateral 5th, 6th, and 7th rib fractures. No acute displaced rib fracture is appreciated. IMPRESSION: 1. No proximal segmental pulmonary arterial filling defect. 2. New circumferential wall thickening of the esophagus relative to the comparison exam from 2016 co ntaining fluid. This may be sequelae of esophagitis. Upper endoscopy may be beneficial in this patien t. 3. Dilatation of left and right pulmonary arteries can be seen with pulmonary arterial hypertension. POS: [facility]
[2017-12-30] MEDS: Heparin 10,000 UNITS/ 10 ML VIAL SLOW IVP SCH (13:34)
[2017-12-30 13:54] LABS: CKMB 11.6 ng/mL (0-6.6); Troponin I 0.917 ng/mL (< 0.028)
--- NOTE | 2017-12-30 14:09 | PDOC.CTH ---
Cardiology Progress Note - Subjective She had chest pain earlier this morning. Same pain she had when she had her OK. - Objective Vital Signs Temp Pulse Pulse Resp BP BP BP 12/30/17 13:57 98.3 F 65 16 96/38 L 12/30/17 11:47 98.7 F 84 16 108/52 L 12/30/17 11:24 98 16 132/64 12/30/17 11:15 98.7 F 83 16 114/69 12/30/17 09:56 99.0 F 83 18 92/59 L 12/30/17 08:20 99.0 F 83 18 12/30/17 07:35 98.3 F 67 18 93/59 L 12/30/17 02:54 62 96/61 Pulse Ox 12/30/17 13:57 100 12/30/17 11:47 99 12/30/17 11:24 97 12/30/17 11:15 100 12/30/17 09:56 100 12/30/17 08:20 91 L 12/30/17 07:35 91 L 12/30/17 02:54 95 Weight 146 lb 12/29/17 12/30/17 12/31/17 06:59 06:59 06:59 Intake Total 630 1035 10 Output Total 625 300 Balance 5 735 10 - Physical Examination General/Neuro: alert & oriented x3, NAD Neck: no JVD present Lungs: CTA, unlabored respirations Heart: RRR Abdomen: NT/ND Extremities: + edema B (1+) - Telemetry Telemetry Rhythm: NSR - Labs Result Diagrams: 12/30/17 09:08 12/30/17 09:07 Troponin/CKMB CK-MB (CK-2) 11.6 ng/mL (0-6.6) H* 12/30/17 13:10 Troponin I 0.917 ng/mL (< 0.028) H* 12/30/17 13:10 - Assessment/Plan 1. Hip Fracture 2. S/P ORIF 3. Post op OK, NSTEMI 4. Severe ischemic CM EF at 30% 5. Severe deconditioning. PLAN: - Transfer to [facility] - Start Heparin Dripp for 48 hrs. - Continue aspirin - She is currently not interested oin any invasive interventions. - She continues to refuse an AICD. - She would like to be DNR/DNI - No PT for now until chest pain better. - Will follow.
[2017-12-30] MEDS ORDERED: Magnesium Oxide 400 MG TAB PO SCH (14:30)
[2017-12-30] MEDS ORDERED: Magnesium Oxide 250 MG TAB PO SCH (14:30)
--- NOTE | 2017-12-30 16:11 | EKG ---
Test Reason : C/O CHEST PAIN Blood Pressure : / mmHG Vent. Rate : 078 BPM Atrial Rate : 078 BPM P-R Int : 156 ms QRS Dur : 082 ms QT Int : 402 ms P-R-T Axes : 072 069 -78 degrees QTc Int : 458 ms Normal sinus rhythm Cannot rule out Anterior infarct (cited on or before 02-MAR-2016) Abnormal ECG When compared with ECG of 28-DEC-2017 17:46, (Unconfirmed) No significant change was found Confirmed by DR. Urbano VASQUEZ ([id number]) on 12/30/2017 4:10:58 PM Referred By: GEETHA Confirmed By:DR. Urbano VASQUEZ
[2017-12-30] MEDS: Heparin 25,000 units/D5W 500 ML IVPB SCH (16:14)
[2017-12-31] MEDS: Acetaminophen 500 MG TAB PO SCH ×4 (04:41→20:46)
[2017-12-31] MEDS: Aspirin 81 mg Enteric Coated Tablet PO SCH ×2 (08:34→20:46)
[2017-12-31] MEDS: Furosemide 40 MG TAB PO SCH (08:34)
[2017-12-31] MEDS: Famotidine 20 MG TAB PO SCH (08:34)
[2017-12-31] MEDS: Sodium Chloride 0.9% 1,000 ML IV SCH (10:07)
[2017-12-31] MEDS: traMADol HCl 50 MG TAB PO PRN ×2 (12:17→20:45)
[2017-12-31 15:20] LABS: #Eosinphils 0.2 thou/uL (0.0-0.7); #Lymphocytes 2.2 thou/uL (1.20-3.40); #Monocytes 1.4 thou/uL (0.11-0.59); #Neutrophils 8.8 thou/uL (1.40-6.50); %Basophils 0.3 % (0.0-1.0); %Eosinophils 1.8 % (0.0-10.0); %Lymphocytes 17.2 % (21.0-51.0); %Monocytes 10.9 % (0.0-10.0); %Neutrophils 69.8 % (42.0-75.0); Hemoglobin 7.6 g/dL (12.0-16.0); MDiff Complete? YES; Mean Corpuscular HGB CONC 33.4 g/dL (32.0-36.0); Mean Corpuscular Hemoglobin 32.5 pg (27.0-31.0); Mean Corpuscular Volume 97.5 fL (78.0-98.0); PLT Morphology Comment Appears Decreased; Platelet Count 118 thou/uL (130-400); Polychromasia SLIGHT = 2-3 cells (100X) (0-2/hpf); Red Blood Cell (RBC) Count 2.35 mill/uL (4.20-5.40); Tear Drops SLIGHT = 2-5 cells (100X) (0-1/hpf); White Blood Cell (WBC) Count 12.6 thou/uL (4.8-10.8)
[2017-12-31 15:24] LABS: Anion Gap 11 mmol/L (10-20); BUN (Urea Nitrogen) 19 mg/dL (9.8-20.1); Calc. Creatinine Clearance 45 mL/min (70-130); Calcium 8.2 mg/dL (7.8-10.44); Carbon Dioxide 26 mmol/L (23-31); Chloride 106 mmol/L (98-107); Estimated GFR-MDRD 53; Glucose 104 mg/dL (83-110); Magnesium 2.2 mg/dL (1.6-2.6); Phosphorus 2.6 mg/dL (2.3-4.7); Potassium 4.2 mmol/L (3.5-5.1); Sodium 139 mmol/L (136-145)
--- NOTE | 2017-12-31 16:31 | PRG ---
DATE OF SERVICE: 12/31/2017 SUBJECTIVE: The patient is hospital day #3, postop day #2 status post hip fracture of her left proxi mal femur and she underwent a left femur TFN long nail procedure. Postop day #1, she began having ch est pain and had elevated troponin, necessitating her being moved to the IMCU. Per evaluation by Car diology, the patient was started on a heparin drip. Her chest pain has since resolved and this morni ng she was attempting to work with physical and occupational therapy. The patient tolerated diet thi s morning and states that her pain is controlled with her current regimen. PHYSICAL EXAMINATION: VITAL SIGNS: Temperature is 97.2, heart rate 60, blood pressure 113/40, oxygen saturation is 100% on 2 liters via nasal cannula. GENERAL: The patient is resting comfortably in ICU bed. She is awake, alert, and oriented x3. Glas emeterio coma scale is 15. HEENT: Unremarkable. LUNGS: Clear to auscultation with good inspiratory and expiratory effort. HEART: Regular rate and rhythm. ABDOMEN: Soft, flat, nontender with active bowel sounds. Postop dressing on her left hip is clean, dry, and intact. EXTREMITIES: Neurovascularly intact x4. LABORATORY DATA: This morning are still pending. Do not appear to be posted yet. There are no radi ographs to review this morning. ASSESSMENT AND PLAN: 1. Status post fall. 2. Status post open reduction internal fixation of left hip fracture. 3. Chest pain with elevated troponin. The patient declined heart catheterization or any other inter ventions related to this. She did agree to heparin per Cardiology's recommendations at minimum. Plan will be to continue monitoring on the [facility] her heparin which should be run for another 24 hours per report by the nursing staff. We will have her work with physical and occupational therapy as she is able to tolerate supportive care.
[2017-12-31] MEDS: Nitroglycerin 0.4 MG TAB (25 Tab Bottle) SL PRN (19:14)
--- NOTE | 2017-12-31 19:22 | EKG ---
Test Reason : Blood Pressure : / mmHG Vent. Rate : 078 BPM Atrial Rate : 078 BPM P-R Int : 164 ms QRS Dur : 076 ms QT Int : 404 ms P-R-T Axes : 063 063 -85 degrees QTc Int : 460 ms Normal sinus rhythm Possible Left atrial enlargement Septal infarct , age undetermined Marked ST abnormality, possible inferior subendocardial injury Abnormal ECG Confirmed by ROSHAN LARSEN DO ([id number]), production editor KATIE LEIGH ([id number]) on 12/31/2017 7:21:56 PM Referred By: Confirmed By:ROSHAN LARSEN DO
[2018-01-01] MEDS: Heparin 25,000 units/D5W 500 ML IVPB SCH (01:17)
[2018-01-01] MEDS: Acetaminophen 500 MG TAB PO SCH ×4 (01:18→19:17)
[2018-01-01] MEDS: Heparin 10,000 UNITS/ 10 ML VIAL SLOW IVP SCH (01:20)
[2018-01-01 07:41] LABS: Hemoglobin 9.9 g/dL (12.0-16.0); Mean Corpuscular HGB CONC 33.8 g/dL (32.0-36.0); Mean Corpuscular Hemoglobin 31.7 pg (27.0-31.0); Mean Corpuscular Volume 93.6 fL (78.0-98.0); Mean Platelet Volume 8.4 fL (7.4-10.4); Platelet Count 108 thou/uL (130-400); RBC Distribution Width 13.2 % (11.5-14.5); Red Blood Cell (RBC) Count 3.13 mill/uL (4.20-5.40); White Blood Cell (WBC) Count 9.8 thou/uL (4.8-10.8)
[2018-01-01 07:45] LABS: #Eosinphils 0.3 thou/uL (0.0-0.7); #Lymphocytes 2.6 thou/uL (1.20-3.40); #Monocytes 1.1 thou/uL (0.11-0.59); #Neutrophils 5.8 thou/uL (1.40-6.50); %Basophils 0.2 % (0.0-1.0); %Eosinophils 2.6 % (0.0-10.0); %Lymphocytes 26.2 % (21.0-51.0); %Monocytes 11.3 % (0.0-10.0); %Neutrophils 59.6 % (42.0-75.0)
[2018-01-01 08:00] LABS: PTT 153.4 SEC (22.9-36.1)
[2018-01-01 08:08] LABS: Anion Gap 9 mmol/L (10-20); BUN (Urea Nitrogen) 17 mg/dL (9.8-20.1); Calc. Creatinine Clearance 55 mL/min (70-130); Calcium 8.3 mg/dL (7.8-10.44); Carbon Dioxide 28 mmol/L (23-31); Chloride 105 mmol/L (98-107); Estimated GFR-MDRD 68; Glucose 91 mg/dL (83-110); Magnesium 2.1 mg/dL (1.6-2.6); Phosphorus 3.8 mg/dL (2.3-4.7); Potassium 4.4 mmol/L (3.5-5.1); Sodium 138 mmol/L (136-145)
[2018-01-01] MEDS: Famotidine 20 MG TAB PO SCH (09:34)
[2018-01-01] MEDS: Furosemide 40 MG TAB PO SCH (09:34)
[2018-01-01] MEDS: Aspirin 81 mg Enteric Coated Tablet PO SCH ×2 (09:34→19:18)
[2018-01-01] MEDS: Cyclobenzaprine 10 MG TAB PO PRN ×2 (10:29→13:14)
[2018-01-01 11:04] LABS: PTT 144.7 SEC (22.9-36.1)
--- NOTE | 2018-01-01 12:03 | PRG ---
DATE OF SERVICE: 01/01/2018 SUBJECTIVE: The patient is hospital day #4, postop day #3, status post hip fracture, which she under went open reduction internal fixation of the same. The patient remains on the IMCU. Today, she had no reported issues overnight. She did receive 2 units of packed red blood cells last night due to pe rsistent anemia which is probably exacerbated somewhat by her heparin therapy. The patient this morn ing is tolerating a diet. She is still having pain when trying to work with physical therapy. She d eclined IV pain medication and we are attempting to get her controlled on p.o. pain medication, so th at we able to start working with physical and occupational therapy. Otherwise, she has no complaints this morning. OBJECTIVE: VITAL SIGNS: Temperature is 97.7, heart rate 60, blood pressure 127/51, respirations 16, oxygen satu ration is 99% on 2 liters via nasal cannula. GENERAL: The patient is resting comfortably in bed. She is awake, alert, and oriented x3. Nicolás coma scale is 15. HEENT: Unremarkable. LUNGS: Clear to auscultation with good inspiratory and expiratory effort. HEART: Regular rate and rhythm. ABDOMEN: Soft, flat, nontender with active bowel sounds. Postop dressing is clean, dry, and intact. EXTREMITIES: Neurovascularly intact. LABORATORY DATA: White blood cell count 9.8, hemoglobin 9.9, hematocrit 29.3, platelets 108. Sodium 138, potassium 4.4, chloride 105, CO2 28, BUN 17, creatinine 0.81, glucose 91, magnesium 2.1, phosph orus 3.8. There are no radiographs to review this morning. ASSESSMENT AND PLAN: 1. Status post ground level fall. 2. Status post open reduction internal fixation of hip fracture. 3. Postop myocardial infarction, [id number] myocardial infarction. Plan will be to continue supportive care. We will make adjustments to her p.o. pain medications in o rder to maximize her physical and occupational therapy. Awaiting Cardiology decision in reference to her heparin. We have added Ensure shakes to her diet regimen which she states that she will partake in.
[2018-01-01] MEDS: traMADol HCl 50 MG TAB PO PRN (19:18)
[2018-01-02] MEDS: traMADol HCl 50 MG TAB PO PRN (00:56)
[2018-01-02] MEDS: Cyclobenzaprine 10 MG TAB PO PRN ×2 (00:57→12:11)
[2018-01-02] MEDS: Acetaminophen 500 MG TAB PO SCH ×4 (00:58→19:38)
[2018-01-02 05:50] LABS: Anion Gap 13 mmol/L (10-20); BUN (Urea Nitrogen) 20 mg/dL (9.8-20.1); Calc. Creatinine Clearance 56 mL/min (70-130); Calcium 8.9 mg/dL (7.8-10.44); Carbon Dioxide 26 mmol/L (23-31); Chloride 103 mmol/L (98-107); Estimated GFR-MDRD 67; Glucose 82 mg/dL (83-110); Phosphorus 3.2 mg/dL (2.3-4.7); Potassium 4.2 mmol/L (3.5-5.1); Sodium 138 mmol/L (136-145)
[2018-01-02 06:06] LABS: #Eosinphils 0.5 thou/uL (0.0-0.7); #Lymphocytes 2.5 thou/uL (1.20-3.40); #Neutrophils 6.4 thou/uL (1.40-6.50); %Basophils 0.4 % (0.0-1.0); %Eosinophils 4.7 % (0.0-10.0); %Lymphocytes 23.7 % (21.0-51.0); %Monocytes 9.8 % (0.0-10.0); %Neutrophils 61.5 % (42.0-75.0); Hemoglobin 10.8 g/dL (12.0-16.0); Mean Corpuscular HGB CONC 33.2 g/dL (32.0-36.0); Mean Corpuscular Volume 96.5 fL (78.0-98.0); Platelet Count 132 thou/uL (130-400); RBC Distribution Width 13.5 % (11.5-14.5); Red Blood Cell (RBC) Count 3.36 mill/uL (4.20-5.40); White Blood Cell (WBC) Count 10.5 thou/uL (4.8-10.8)
[2018-01-02] MEDS: Famotidine 20 MG TAB PO SCH ×2 (08:20→19:38)
[2018-01-02] MEDS: Furosemide 40 MG TAB PO SCH (08:21)
[2018-01-02] MEDS ORDERED: Aspirin 81 mg Enteric Coated Tablet PO SCH (09:00)
--- NOTE | 2018-01-02 10:33 | PRG ---
DATE OF SERVICE: 01/02/2018 SUBJECTIVE: Ms. Aldrich is an 82-year-old woman who is postop day #3 status post left femur TFN. Patihanna nt also had postoperative non-ST elevation myocardial infarction. She denied any chest pain over the last 24 hours. She tolerates diet. Urinary output has been adequate. OBJECTIVE: VITAL SIGNS: This morning includes blood pressure 127/59, pulse is 63, respiratory rate 16, temperat ure 97.2 degrees Fahrenheit, oxygen saturation is 95% on 2 liters by nasal cannula oxygen. HEART: Reveals regular rate and rhythm, no murmurs or gallops auscultated. LUNGS: Clear to auscultation bilaterally. Her breathing is regular and unlabored. ABDOMEN: Soft, nontender, nondistended. EXTREMITIES: Reveals 2+ radial and pedal pulses bilaterally. She has no ankle edema present. NEUROLOGIC: Examination reveals no focal deficits present. LABORATORY DATA: Today includes CBC with 10,500 white blood cells, hemoglobin and hematocrit stable at 10.8 and 32.4 respectively, platelet count is 132,000. Metabolic profile: Sodium 138, potassium is 4.2, chloride is 103, bicarbonate 26, BUN 20, creatinine 0.82, glucose is 82, magnesium is 2.0 and phosphorus is 3.2. IMPRESSION: 1. Postoperative day #3 status post repair of left hip fracture. 2. Postoperative non-ST elevation myocardial infarction, hemodynamically stable. PLAN: 1. Increase activity per physical and occupational therapy. 2. The patient has been evaluated by PM&R for possible inpatient rehabilitation. 3. We will continue with aspirin 81 mg p.o. b.i.d. and that should be adequate for VTE prophylaxis.
[2018-01-02] MEDS: traMADol HCl 50 MG TAB PO SCH ×2 (11:23→17:40)
--- NOTE | 2018-01-02 12:38 | PDOC.CTH ---
Cardiology Progress Note - Subjective She is doing well. No more episodes of chest pain as she had after her surgery. She is still having her chronic angina pain. - Objective Vital Signs Temp Pulse Resp BP BP BP Pulse Ox 01/02/18 11:28 97.6 F 77 20 93/49 L 01/02/18 09:07 118/52 L 127/59 L 01/02/18 07:39 97.0 F L 63 16 95 01/02/18 07:28 97.0 F L 63 16 128/47 L 95 01/02/18 04:00 97.2 F L 67 13 102/48 L 100 Weight 145 lb 8 oz 01/01/18 01/02/18 01/03/18 06:59 06:59 06:59 Intake Total 2105 260 120 Output Total 1900 2025 Balance 205 -1765 120 - Physical Examination General/Neuro: alert & oriented x3, NAD Neck: no JVD present Lungs: unlabored respirations Heart: RRR Abdomen: NT/ND Extremities: + edema B (trace edema.) - Telemetry Telemetry Rhythm: NSR - Labs Result Diagrams: 01/02/18 05:08 01/02/18 05:08 Troponin/CKMB CK-MB (CK-2) 11.6 ng/mL (0-6.6) H* 12/30/17 13:10 Troponin I 0.917 ng/mL (< 0.028) H* 12/30/17 13:10 - Assessment/Plan 1. Hip fracture s/p ORIF. 2. CAD. 3. Ischemic CM EF at 30% 4. Post op [place] PLAN; - Continue current plan of care. - BP borderline low to up titrate any medications. - To inpatient rehab in next 3 days.
[2018-01-02] MEDS: Aspirin 81 mg Enteric Coated Tablet PO SCH (19:38)
[2018-01-03] MEDS: traMADol HCl 50 MG TAB PO SCH ×4 (00:54→17:23)
[2018-01-03] MEDS: Acetaminophen 500 MG TAB PO SCH ×4 (04:17→19:36)
[2018-01-03 06:02] LABS: Anion Gap 19 mmol/L (10-20); Calc. Creatinine Clearance 58 mL/min (70-130); Calcium 9.1 mg/dL (7.8-10.44); Carbon Dioxide 21 mmol/L (23-31); Chloride 103 mmol/L (98-107); Estimated GFR-MDRD 70; Glucose 86 mg/dL (83-110); Phosphorus 3.3 mg/dL (2.3-4.7); Potassium 4.8 mmol/L (3.5-5.1); Sodium 138 mmol/L (136-145)
[2018-01-03 06:05] LABS: BUN (Urea Nitrogen) 22 mg/dL (9.8-20.1)
[2018-01-03] MEDS: Aspirin 81 mg Enteric Coated Tablet PO SCH ×2 (10:37→19:37)
[2018-01-03] MEDS: Furosemide 40 MG TAB PO SCH (10:38)
[2018-01-03] MEDS: Famotidine 20 MG TAB PO SCH ×2 (10:38→19:36)
--- NOTE | 2018-01-03 11:23 | PRG ---
DATE OF SERVICE: 01/03/2018 SUBJECTIVE: Ms. Aldrich is an 82-year-old woman who is status post TFN left intertrochanteric femur fra cture. The patient has a significant history of coronary artery disease. She denies any chest pain, dyspnea or syncope. She tolerates general diet. She has had no arrhythmias overnight. Urinary out put has been adequate. The patient has remained hemodynamically stable over the last 72 hours. Syst em is down and so I am unable to view laboratory studies. CLINICAL EXAMINATION: HEART: Reveals regular rate and rhythm. The patient has no murmurs or gallops auscultated. LUNGS: Clear to auscultation bilaterally. Her breathing regular and unlabored. ABDOMEN: Soft, nontender, nondistended. NEUROLOGIC: Reveals no focal deficits present. IMPRESSION: 1. Status post trochanteric fixation nail left femur fracture. The patient is hemodynamically stabl e. 2. History of severe coronary artery disease. No clinical evidence of ongoing ischemia. PLAN: 1. Continue activity per physical and occupational therapy. 2. The patient will be transferred to the general surgical floor if okay with Cardiology.
[2018-01-03 14:07] LABS: Hemoglobin 11.4 g/dL (12.0-16.0); Mean Corpuscular HGB CONC 33.5 g/dL (32.0-36.0); Mean Corpuscular Hemoglobin 32.6 pg (27.0-31.0); Mean Corpuscular Volume 97.1 fL (78.0-98.0); Mean Platelet Volume 7.7 fL (7.4-10.4); Platelet Count 199 thou/uL (130-400); RBC Distribution Width 13.1 % (11.5-14.5); White Blood Cell (WBC) Count 11.7 thou/uL (4.8-10.8)
[2018-01-03 14:28] LABS: #Eosinphils 0.4 thou/uL (0.0-0.7); #Monocytes 1.3 thou/uL (0.11-0.59); #Neutrophils 7.8 thou/uL (1.40-6.50); %Basophils 0.4 % (0.0-1.0); %Eosinophils 3.1 % (0.0-10.0); %Lymphocytes 17.3 % (21.0-51.0); %Monocytes 11.2 % (0.0-10.0); MDiff Complete? YES; PLT Morphology Comment Appears Adequate; Polychromasia SLIGHT = 2-3 cells (100X) (0-2/hpf)
--- NOTE | 2018-01-03 18:31 | PDOC.CTH ---
Cardiology Progress Note - Subjective Doing well. Has been up with rehab. No chest pain, tightness, pressure. SOB at baseline. - Objective Vital Signs Temp Pulse Pulse Pulse Resp BP BP 01/03/18 15:57 97.8 F 82 20 01/03/18 11:41 98.0 F 80 14 01/03/18 11:38 79 78 123/52 L 128/55 L 01/03/18 11:21 97.1 F L 76 18 01/03/18 07:30 97.1 F L 76 18 BP Pulse Ox Pulse Ox Pulse Ox 01/03/18 15:57 108/50 L 01/03/18 11:41 122/55 L 96 01/03/18 11:38 96 96 01/03/18 11:21 95 01/03/18 07:30 132/59 L 98 Weight 138 lb 01/02/18 01/03/18 01/04/18 06:59 06:59 06:59 Intake Total 260 1062 240 Output Total 2025 2100 Balance -1765 -1038 240 - Physical Examination General/Neuro: alert & oriented x3, NAD Neck: no JVD present Lungs: unlabored respirations Heart: RRR Abdomen: NT/ND Extremities: + edema B (trace) - Telemetry Telemetry Rhythm: NSR - Labs Result Diagrams: 01/03/18 13:48 01/03/18 04:46 Troponin/CKMB CK-MB (CK-2) 11.6 ng/mL (0-6.6) H* 12/30/17 13:10 Troponin I 0.917 ng/mL (< 0.028) H* 12/30/17 13:10 - Assessment/Plan 1. Hip fracture s/p ORIF. 2. CAD. 3. Ischemic CM EF at 30% 4. Post op [place] PLAN; - Continue current plan of care. - BP borderline low to up titrate any medications. - To inpatient rehab . - Continue to increase PT as tolerated. - Will follow.
[2018-01-03] MEDS: Cyclobenzaprine 10 MG TAB PO PRN (21:41)
[2018-01-04] MEDS: traMADol HCl 50 MG TAB PO SCH ×5 (00:04→23:36)
[2018-01-04] MEDS: Acetaminophen 500 MG TAB PO SCH ×4 (06:29→20:10)
[2018-01-04] MEDS: Famotidine 20 MG TAB PO SCH ×2 (08:51→20:10)
[2018-01-04] MEDS: Aspirin 81 mg Enteric Coated Tablet PO SCH ×2 (08:52→20:10)
[2018-01-04] MEDS: Polyethylene Glycol 3350 17 GM Packet PO SCH (08:52)
[2018-01-04] MEDS: Furosemide 40 MG TAB PO SCH (08:52)
[2018-01-04] MEDS: Senokot 8.6 MG TAB PO SCH (08:52)
--- NOTE | 2018-01-04 12:32 | PRG ---
DATE OF SERVICE: 01/04/2018 SUBJECTIVE: Ms. Dulce Aldrich is an 82-year-old woman who is postoperative day #5 status post TFN of t he left hip fracture. She has a history of severe coronary arterial disease. The patient reports no chest pain or dyspnea over the last 24 hours. She participated with physical therapy without any problems. She tolerates general diet, having normal bowel and urinary function. OBJECTIVE: VITAL SIGNS: Today includes blood pressure 139/49, pulse 68, respiratory rate is 20, temperature is 97.6 degrees Fahrenheit, oxygen saturation 100% on room air. HEART: Reveals regular rate and rhythm, no murmurs or gallops auscultated. CHEST: Clear to auscultation bilaterally. Breathing is regular and unlabored. ABDOMEN: Soft, nontender, nondistended. EXTREMITIES: Reveals 2+ radial and pedal pulses bilaterally. No ankle edema is present. NEUROLOGIC: Reveals no focal deficits present. IMPRESSION: 1. Postop day #5, status post TFN left hip fracture. 3. History of severe coronary artery disease, currently hemodynamically stable. PLAN: Continue to increase activity per physical and occupational therapy. Anticipate discharge to rehab tomorrow if the patient remains stable.
--- NOTE | 2018-01-04 17:45 | PDOC.CTH ---
Cardiology Progress Note - Objective Vital Signs Temp Pulse Pulse Pulse Resp BP BP 01/04/18 16:00 97.7 F 90 18 01/04/18 14:05 80 132/68 118/54 L 01/04/18 12:00 97.9 F 82 18 01/04/18 09:10 90 82 156/78 H 128/59 L 01/04/18 08:00 97.6 F 68 20 01/04/18 07:52 97.0 F L 63 14 01/04/18 06:00 BP Pulse Ox Pulse Ox Pulse Ox 01/04/18 16:00 105/54 L 01/04/18 14:05 100 01/04/18 12:00 105/57 L 97 01/04/18 09:10 98 100 01/04/18 08:00 139/49 L 100 01/04/18 07:52 100 01/04/18 06:00 98 Weight 138 lb 01/03/18 01/04/18 01/05/18 06:59 06:59 06:59 Intake Total 1062 1120 Output Total 2100 1400 525 Balance -1038 -080 -512 - Physical Examination General/Neuro: alert & oriented x3, NAD Neck: no JVD present Lungs: CTA, unlabored respirations Heart: RRR Abdomen: NT/ND Extremities: + edema B (trace) - Telemetry Telemetry Rhythm: NSR - Labs Result Diagrams: 01/03/18 13:48 01/03/18 04:46 Troponin/CKMB CK-MB (CK-2) 11.6 ng/mL (0-6.6) H* 12/30/17 13:10 Troponin I 0.917 ng/mL (< 0.028) H* 12/30/17 13:10 - Assessment/Plan 1. Hip fracture s/p ORIF. 2. CAD. 3. Ischemic CM EF at 30% 4. Post op [place] PLAN; - Continue current plan of care. - BP borderline low to up titrate any medications, cannot add ACEI as her BP has dropped in the past with it and she has not tolerated statins in the past. - To inpatient rehab Tomorrow - Continue to increase PT as tolerated. - Will follow.
[2018-01-04] MEDS: Cyclobenzaprine 10 MG TAB PO PRN (22:17)
[2018-01-05] MEDS: Acetaminophen 500 MG TAB PO SCH ×3 (01:56→14:32)
[2018-01-05] MEDS: traMADol HCl 50 MG TAB PO SCH ×2 (05:38→11:25)
[2018-01-05] MEDS: Senokot 8.6 MG TAB PO SCH (08:49)
[2018-01-05] MEDS: Furosemide 40 MG TAB PO SCH (08:49)
[2018-01-05] MEDS: Cyclobenzaprine 10 MG TAB PO PRN (08:50)
[2018-01-05] MEDS: Aspirin 81 mg Enteric Coated Tablet PO SCH (08:50)
[2018-01-05] MEDS: Famotidine 20 MG TAB PO SCH (08:50)
[2018-01-05] MEDS: Polyethylene Glycol 3350 17 GM Packet PO SCH (08:51)
[2018-01-05 10:12] LABS: Bilirubin Negative (Negative); Blood, Urine Moderate (Negative); Clarity CLOUDY (Clear); Glucose, Urine (Dipstick) Negative (Negative); Leukocyte Moderate (Negative); Nitrite Positive (Negative); Protein, Urine (Dipstick) Negative (Neg-Trace); Specific Gravity, Urine 1.012 (1.002-1.036); pH, Urine 7.5 (5.0-9.0)
[2018-01-05 10:14] LABS: Bacteria/HPF Rare-Few HPF (None Seen); Hyaline Casts/LPF 0-3 HYALINE CAST LPF (0-3 Hyaline); Pathc Cast-AUWi Flag 0.14 (0-2.49); Squamous Epithelial 0-3 HPF (0-3); WBC/HPF 0-3 HPF (0-3); Yeast-AUWi Flag 39.3 (0-25.0)
[2018-01-05] MEDS ORDERED: Ciprofloxacin 500 MG TAB PO SCH ×2 (11:15→20:00)
--- NOTE | 2018-01-05 12:06 | PRG-2 ---
DATE OF SERVICE: 01/05/2018 SUBJECTIVE: This is an 82-year-old female hospital day #8 postop day #5, open reduction internal fix ation of left femur fracture. The patient has history of coronary artery disease with elevated tropo nins during this stay; however, currently the patient does not complain of any chest pain, any troubl e breathing or any abdominal pain. She is eating some food and keeping it down. The patient's Guerrero was removed yesterday and the patient has been voiding without any trouble. OBJECTIVE: VITAL SIGNS: Temperature 97.2, pulse 79, respirations 14, O2 sat 99% on room air, blood pressure 122 /53. GENERAL: The patient is sitting up in bed in no acute distress. There was a foul odor within enteri ng the room, that perhaps of sitting urine or infected urine. CARDIOVASCULAR: Heart; regular rate and rhythm with no murmurs. CHEST: Lungs are clear to auscultation bilaterally, nonlabored breathing. ABDOMEN: Soft, nontender. Bowel sounds are present. EXTREMITIES: Pulses are present in all 4 extremities. NEUROLOGIC: Reveals no focal deficits. ASSESSMENT: 1. Hospital day #8 postop day #6 status post left hip open reduction internal fixation. 2. History of coronary artery disease, currently stable. Dr. Stephens is following the patient. PLAN: We will continue working with the patient on physical therapy and occupational therapy. Progr ess towards goals. The patient will go to nursing facility for more rehab hopefully today if andry samano approves.
[2018-01-05 12:14] LABS: Yeast-All Forms None Seen HPF (None Seen)
[2018-01-05 12:24] VITALS: BMI 31.0
--- NOTE | 2018-01-05 15:27 | PDOC.CTH ---
Cardiology Progress Note - Subjective She is doing well. Pain is well controlled. No chest pain. - Objective Vital Signs Temp Pulse Resp BP Pulse Ox 01/05/18 11:42 97.4 F L 85 14 97/49 L 98 01/05/18 07:44 100 01/05/18 07:33 97.2 F L 79 14 122/53 L 99 01/05/18 03:43 97.6 F 72 18 137/69 100 Admit Weight 131 lb Weight 134 lb 01/04/18 01/05/18 01/06/18 06:59 06:59 06:59 Intake Total 1120 1070 Output Total 1400 1175 300 Balance -280 -105 -300 - Physical Examination General/Neuro: alert & oriented x3, NAD Neck: no JVD present Lungs: CTA, unlabored respirations Heart: RRR Abdomen: NT/ND Extremities: other: (no edema) - Telemetry Telemetry Rhythm: NSR - Labs Result Diagrams: 01/03/18 13:48 01/03/18 04:46 Troponin/CKMB CK-MB (CK-2) 11.6 ng/mL (0-6.6) H* 12/30/17 13:10 Troponin I 0.917 ng/mL (< 0.028) H* 12/30/17 13:10 - Assessment/Plan 1. Hip fracture s/p ORIF. 2. CAD. 3. Ischemic CM EF at 30% 4. Post op [place] PLAN; - Continue current plan of care. - BP borderline low to up titrate any medications, cannot add ACEI as her BP has dropped in the past with it and she has not tolerated statins in the past. - Continue to increase PT as tolerated. - Transfer to Inpatient rehab today.
[2018-01-05 16:04] VITALS: BP 107/53; TEMP 97
== END 2018-01-05 16:48 | disposition home or self-care (01) | DRG 480 ==
LOC: ERS 17:16 → SURG A 20:33 → IMCU/EMU 12-30 09:45
PROVIDERS: ADMIT Surgery; ATTEND Surgery
PROC: 0QS704Z Reposition Left Upper Femur with Internal Fixation Device, Open Approach (ICD-10-PCS; principal; 2017-12-29)
DX: S72.22XA Displaced subtrochanteric fracture of left femur, initial encounter for closed fracture (principal); I21.4 Non-ST elevation (NSTEMI) myocardial infarction; D62 Acute posthemorrhagic anemia; I50.22 Chronic systolic (congestive) heart failure; I42.9 Cardiomyopathy, unspecified; I11.0 Hypertensive heart disease with heart failure; K21.9 Gastro-esophageal reflux disease without esophagitis; E78.5 Hyperlipidemia, unspecified; M19.90 Unspecified osteoarthritis, unspecified site; I25.10 Atherosclerotic heart disease of native coronary artery without angina pectoris; Z95.1 Presence of aortocoronary bypass graft; W10.9XXA Fall (on) (from) unspecified stairs and steps, initial encounter; Y92.009 Unspecified place in unspecified non-institutional (private) residence as the place of occurrence of the external cause; Z79.899 Other long term (current) drug therapy; Z79.82 Long term (current) use of aspirin; F41.9 Anxiety disorder, unspecified; R53.81 Other malaise
CPT/HCPCS: 36415; 36416; 36430; 51702; 71045; 71275; 72170; 76001; 80048; 80053; 81001; 82553; 83735; 84100; 84484; 85025; 85610; 85730; 86850; 86900; 86901; 90471; 90715; 93005; 93010; 93306; 96374; C1713; C1769; G0390; G8978-GP-CM; G8979-GP-CJ; J0131; J1100; J1644; J2270; J2405; J2704; J3010; J3475; J7050; P9016; Q0162